=== PATIENT | female | born 1990 | race Caucasian/White ===

== ENCOUNTER 2018-03-24 14:50 | Emergency (ER) | payer OTHER ==
--- NOTE | 2018-03-24 15:00 | EDM.PDOC ---
ED HPI GENERAL MEDICAL PROBLEM - General Chief Complaint: Abdominal Pain Stated Complaint: PAIN IN STOMACH Time Seen by Provider: 03/24/18 14:51 Source of Information: Reports: Patient History Limitations: Reports: No Limitations - History of Present Illness INITIAL COMMENTS - FREE TEXT/NARRATIVE: History of present illness: []Patient was diagnosed with cholelithiasis on February 17 referred to general surgery. Patient was scheduled for surgery but was awaiting insurance approval and had to cancel. 4 days ago patient was started taking her left over tramadol for increasing pain in her upper abdomen. Patient been having sweats worsening pain and cannot tolerate it any longer. She has not been able to have a bowel movement, denies any urinary symptoms. Review of systems: As per history of present illness and below otherwise all systems reviewed and negative. Past medical history: As per history of present illness and as reviewed below otherwise noncontributory. Surgical history: As per history of present illness and as reviewed below otherwise noncontributory. Social history: No reported history of drug or alcohol abuse. Family history: As per history of present illness and as reviewed below otherwise noncontributory. Physical exam: General: Well developed, well nourished in NAD HEENT: Atraumatic, normocephalic, pupils reactive, negative for conjunctival pallor or scleral icterus, mucous membranes moist, throat clear, neck supple, nontender, trachea midline. Lungs: Clear to auscultation, breath sounds equal bilaterally, chest nontender. Heart: S1S2, regular, negative for clicks, rubs, or JVD. Abdomen: NABS, Soft, nondistended, tender right upper quadrant with no guarding positive rebound. Negative for masses or hepatosplenomegaly. Negative for costovertebral tenderness. Pelvis: Stable nontender. Genitourinary: Deferred. Rectal: Deferred. Extremities: Atraumatic, negative for cords or calf pain. Neurovascular unremarkable. Neuro: Awake, alert, oriented. Cranial nerves II through XII unremarkable. Cerebellum unremarkable. Motor and sensory unremarkable throughout. Exam nonfocal. Skin:warm and dry Diagnostics: CBC, chemistry-elevation in alkaline phosphatase AST and ALT with a normal bilirubin, lipase, UA, test, ultrasound of the gallbladder: Gallbladder wall ranges from upper limits normal to mildly thickened. Moderate size stone in the gallbladder with moderate amount of sludge and debris in the gallbladder. No pericholecystic fluid. Sonographic Renner`s sign was noted. Given these changes, early acute cholecystitis cannot be excluded. Consider HIDA scan to further evaluate. 2. Common bile duct normal in diameter but has increased echogenicity within its lumen which could be artifactual or related to sludge. 3. Cannot exclude mild intrahepatic biliary dilatation on 1 of the images. Therapeutics: Normal saline, Dilaudid, Zofran ED Course: Improved. Dr. Espino was consulted and he evaluated her in the emergency room cleared for discharge. given WBC was normal he recommend DC her on a meds with follow-up Impression: Early acute cholecystitis Prescriptions: Tramadol, Zofran and Levsin Plan: Follow-up with Dr. Vera next week. AMBER if symptoms worsen or change Definitive disposition and diagnosis as appropriate pending reevaluation and review of above. abdomen Pain Score (Numeric/FACES): 7 - Related Data Allergies Allergy/AdvReac Type Severity Reaction Status Date / Time latex Allergy Swelling Verified 03/21/18 03:28 sardines Allergy Hives Uncoded 03/21/18 03:28 wasp stings Allergy Swelling Uncoded 03/21/18 03:28 Home Meds: Home Meds traMADol HCl [Tramadol HCl] 1 tab PO ASDIRECTED PRN 03/07/18 [History] Hyoscyamine Sulfate [Levsin] 0.125 mg PO TID PRN #20 tablet 03/24/18 [Rx] Ondansetron HCl [Zofran] 4 mg PO Q4HR #12 tablet 03/24/18 [Rx] traMADol HCl [Tramadol HCl] 50 mg PO Q6H PRN #16 tablet 03/24/18 [Rx] Past Medical History [facility] History: Reports: Polycystic Ovaries, Spontaneous - Past Surgical History Female Surgical History: Reports: Breast Implant, Oophorectomy, Tubal Ligation Neurological Surgical History: Reports: Discectomy Other Neurological Surgeries/Procedures: L5 on R side ED ROS GENERAL - Review of Systems Review Of Systems: ROS reveals no pertinent complaints other than HPI. ED EXAM, GI/ABD - Physical Exam Exam: See Below (See history of present illness) Course - Vital Signs Last Recorded V/S: Last Vital Signs Temp 97.3 F 03/24/18 14:56 Pulse 104 H 03/24/18 14:56 Resp 20 03/24/18 14:56 BP 148/83 H 03/24/18 14:56 Pulse Ox 100 03/24/18 14:56 - Orders/Labs/Meds Orders: Active Orders 24 hr Category Date Time Status Abdomen Ltd [US] Stat Exams 03/24/18 15:12 Taken Sodium Chloride 0.9% [Saline Flush] Med 03/24/18 15:08 Active 10 ml FLUSH ASDIRECTED PRN Sodium Chloride 0.9% [Saline Flush] Med 03/24/18 15:08 Active 2.5 ml FLUSH ASDIRECTED PRN Saline Lock Insert [OM.PC] Stat Oth 03/24/18 15:07 Ordered Medication Orders Sodium Chloride (Saline Flush) 10 ml FLUSH ASDIRECTED PRN PRN Reason: Keep Vein Open Last Admin: 03/24/18 15:16 Dose: 10 ml Sodium Chloride (Saline Flush) 2.5 ml FLUSH ASDIRECTED PRN PRN Reason: Keep Vein Open Last Admin: 03/24/18 15:16 Dose: 2.5 ml Labs: Laboratory Tests 03/24/18 03/24/18 03/24/18 Range/Units 15:10 15:10 15:19 WBC 8.68 (4.0-11.0) K/uL RBC 4.54 (4.30-5.90) M/uL Hgb 13.7 (12.0-16.0) g/dL Hct 40.1 (36.0-46.0) % MCV 88.3 (80.0-98.0) fL MCH 30.2 (27.0-32.0) pg MCHC 34.2 (31.0-37.0) g/dL RDW Std Deviation 38.9 (28.0-62.0) fl RDW Coeff of Angel 12 (11.0-15.0) % Plt Count 258 (150-400) K/uL MPV 8.70 (7.40-12.00) fL Neut % (Auto) 61.0 (48.0-80.0) % Lymph % (Auto) 27.9 (16.0-40.0) % [place] % (Auto) 9.7 (0.0-15.0) % Eos % (Auto) 1.2 (0.0-7.0) % Baso % (Auto) 0.2 (0.0-1.5) % Neut # (Auto) 5.3 (1.4-5.7) K/uL Lymph # (Auto) 2.4 (0.6-2.4) K/uL [place] # (Auto) 0.8 (0.0-0.8) K/uL Eos # (Auto) 0.1 (0.0-0.7) K/uL Baso # (Auto) 0.0 (0.0-0.1) K/uL Nucleated RBC % 0.0 /100WBC Nucleated RBCs # 0 K/uL Sodium (136-145) mmol/L Potassium (3.5-5.1) mmol/L Chloride (98-107) mmol/L Carbon Dioxide (21.0-32.0) mmol/L BUN (7.0-18.0) mg/dL Creatinine (0.6-1.0) mg/dL Est Cr Clr Drug Dosing mL/min Estimated GFR (MDRD) ml/min Glucose (74-106) mg/dL Calcium (8.5-10.1) mg/dL Total Bilirubin (0.2-1.0) mg/dL AST (15-37) IU/L ALT (14-63) IU/L Alkaline Phosphatase (46-116) U/L Total Protein (6.4-8.2) g/dL Albumin (3.4-5.0) g/dL Globulin (2.6-4.0) g/dL Albumin/Globulin Ratio (0.9-1.6) Lipase (73-393) U/L Urine Color YELLOW Urine Appearance CLEAR Urine pH 7.0 (5.0-8.0) Ur Specific [place] 1.025 (1.001-1.035) Urine Protein TRACE H (NEGATIVE) mg/dL Urine Glucose (UA) NEGATIVE (NEGATIVE) mg/dL Urine Ketones TRACE H (NEGATIVE) mg/dL Urine Occult Blood MODERATE H (NEGATIVE) Urine Nitrite NEGATIVE (NEGATIVE) Urine Bilirubin NEGATIVE (NEGATIVE) Urine Urobilinogen 1.0 (<2.0) EU/dL Ur Leukocyte Esterase NEGATIVE (NEGATIVE) Urine RBC 4-6 (0-2/HPF) Urine WBC 0-1 (0-5/HPF) Ur Epithelial Cells MODERATE (NONE-FEW) Urine Bacteria FEW (NEGATIVE) Urine HCG, Qual NEGATIVE (NEGATIVE) 01/13/19 Range/Units 15:19 WBC (4.0-11.0) K/uL RBC (4.30-5.90) M/uL Hgb (12.0-16.0) g/dL Hct (36.0-46.0) % MCV (80.0-98.0) fL MCH (27.0-32.0) pg MCHC (31.0-37.0) g/dL RDW Std Deviation (28.0-62.0) fl RDW Coeff of Angel (11.0-15.0) % Plt Count (150-400) K/uL MPV (7.40-12.00) fL Neut % (Auto) (48.0-80.0) % Lymph % (Auto) (16.0-40.0) % [place] % (Auto) (0.0-15.0) % Eos % (Auto) (0.0-7.0) % Baso % (Auto) (0.0-1.5) % Neut # (Auto) (1.4-5.7) K/uL Lymph # (Auto) (0.6-2.4) K/uL [place] # (Auto) (0.0-0.8) K/uL Eos # (Auto) (0.0-0.7) K/uL Baso # (Auto) (0.0-0.1) K/uL Nucleated RBC % /100WBC Nucleated RBCs # K/uL Sodium 139 (136-145) mmol/L Potassium 3.9 (3.5-5.1) mmol/L Chloride 104 (98-107) mmol/L Carbon Dioxide 26.0 (21.0-32.0) mmol/L BUN 12 (7.0-18.0) mg/dL Creatinine 0.9 (0.6-1.0) mg/dL Est Cr Clr Drug Dosing 82.99 mL/min Estimated GFR (MDRD) > 60.0 ml/min Glucose 99 (74-106) mg/dL Calcium 9.3 (8.5-10.1) mg/dL Total Bilirubin 0.4 (0.2-1.0) mg/dL AST 175 H (15-37) IU/L ALT 251 H (14-63) IU/L Alkaline Phosphatase 132 H (46-116) U/L Total Protein 8.0 (6.4-8.2) g/dL Albumin 3.5 (3.4-5.0) g/dL Globulin 4.5 H (2.6-4.0) g/dL Albumin/Globulin Ratio 0.8 L (0.9-1.6) Lipase 132 (73-393) U/L Urine Color Urine Appearance Urine pH (5.0-8.0) Ur Specific [place] (1.001-1.035) Urine Protein (NEGATIVE) mg/dL Urine Glucose (UA) (NEGATIVE) mg/dL Urine Ketones (NEGATIVE) mg/dL Urine Occult Blood (NEGATIVE) Urine Nitrite (NEGATIVE) Urine Bilirubin (NEGATIVE) Urine Urobilinogen (<2.0) EU/dL Ur Leukocyte Esterase (NEGATIVE) Urine RBC (0-2/HPF) Urine WBC (0-5/HPF) Ur Epithelial Cells (NONE-FEW) Urine Bacteria (NEGATIVE) Urine HCG, Qual (NEGATIVE) Meds: Medications Generic Name Dose Route Start Last Admin Trade Name Fredana PRN Reason Stop Dose Admin Sodium Chloride 10 ml 03/24/18 15:08 03/24/18 15:16 Saline Flush FLUSH 10 ml ASDIRECTED PRN Administration Keep Vein Open Sodium Chloride 2.5 ml 03/24/18 15:08 03/24/18 15:16 Saline Flush FLUSH 2.5 ml ASDIRECTED PRN Administration Keep Vein Open Discontinued Medications Generic Name Dose Route Start Last Admin Trade Name Freq PRN Reason Stop Dose Admin Hydromorphone HCl 0.5 mg 03/24/18 15:08 03/24/18 15:16 Dilaudid IVPUSH 03/24/18 15:09 0.5 mg ONETIME ONE Administration Sodium Chloride 1,000 mls @ 999 mls/hr 03/24/18 15:08 03/24/18 15:15 Normal Saline IV 03/24/18 16:08 999 mls/hr .Bolus ONE Administration Ondansetron HCl 4 mg 03/24/18 15:08 03/24/18 15:15 Zofran IVPUSH 03/24/18 15:09 4 mg ONETIME ONE Administration Departure - Departure Time of Disposition: 16:24 Disposition: Home, Self-Care 01 Condition: Good Clinical Impression: Cholelithiasis Qualifiers: Cholelithiasis location: gallbladder Cholecystitis presence: without cholecystitis Biliary obstruction: without biliary obstruction Qualified Code(s) : K80.20 - Calculus of gallbladder without cholecystitis without obstruction - Discharge Information *PRESCRIPTION DRUG MONITORING PROGRAM REVIEWED*: No *COPY OF PRESCRIPTION DRUG MONITORING REPORT IN PATIENT TACOS: No Prescriptions: Ondansetron HCl [Zofran] 4 mg PO Q4HR #12 tablet Hyoscyamine Sulfate [Levsin] 0.125 mg PO TID PRN #20 tablet PRN Reason: Pain traMADol HCl [Tramadol HCl] 50 mg PO Q6H PRN #16 tablet PRN Reason: Pain Instructions: Cholelithiasis, [id number] Referrals: Radha Vera MD [Primary Care Provider] - Forms: ED Department Discharge Additional Instructions: The following information is given to patients seen in the emergency department who are being discharged to home. This information is to outline your options for follow-up care. We provide all patients seen in our emergency department with a follow-up referral. The need for follow-up, as well as the timing and circumstances, are variable depending upon the specifics of your emergency department visit. If you don't have a primary care physician on staff, we will provide you with a referral. We always advise you to contact your personal physician following an emergency department visit to inform them of the circumstance of the visit and for follow-up with them and/or the need for any referrals to a consulting specialist. The emergency department will also refer you to a specialist when appropriate. This referral assures that you have the opportunity for follow-up care with a specialist. All of these measure are taken in an effort to provide you with optimal care, which includes your follow-up. Under all circumstances we always encourage you to contact your private physician who remains a resource for coordinating your care. When calling for follow-up care, please make the office aware that this follow-up is from your recent emergency room visit. If for any reason you are refused follow-up, please contact the [facility] Emergency Department at and asked to speak to the emergency department charge nurse. Take meds as directed, follow up with Dr. Vera return if symptoms worsen or change. [facility] [address] [place] [id number] - My Orders Last 24 Hours: My Active Orders 03/24/18 15:07 Saline Lock Insert [OM.PC] Stat 03/24/18 15:08 Sodium Chloride 0.9% [Saline Flush] 10 ml FLUSH ASDIRECTED PRN Sodium Chloride 0.9% [Saline Flush] 2.5 ml FLUSH ASDIRECTED PRN 03/24/18 15:12 Abdomen Ltd [US] Stat - Assessment/Plan Last 24 Hours: My Active Orders 03/24/18 15:07 Saline Lock Insert [OM.PC] Stat 03/24/18 15:08 Sodium Chloride 0.9% [Saline Flush] 10 ml FLUSH ASDIRECTED PRN Sodium Chloride 0.9% [Saline Flush] 2.5 ml FLUSH ASDIRECTED PRN 03/24/18 15:12 Abdomen Ltd [US] Stat
[2018-03-24] MEDS ORDERED: Sodium Chloride 0.9% 1,000 ML IV ONE (15:08)
[2018-03-24] MEDS ORDERED: Ondansetron 4 MG/2 ML SDV IVPUSH ONE (15:08)
[2018-03-24] MEDS ORDERED: HYDROmorphone 1 MG/ML Syringe IVPUSH ONE (15:08)
[2018-03-24] MEDS ORDERED: Sodium Chloride 0.9% 2.5 ML Syringe FLUSH PRN (15:08)
[2018-03-24] MEDS ORDERED: Sodium Chloride 0.9% 10 ML Syringe FLUSH PRN (15:08)
[2018-03-24 15:53] LABS: CHLORIDE,CL 104 mmol/L (98-107); SODIUM,NA 139 mmol/L (136-145)
--- NOTE | 2018-03-24 16:44 | PCM.CONS ---
H&P History of Present Illness - General Date of Service: 03/24/18 Admit Problem/Dx: Patient is a 27-year-old female with a documented history of cholelithiasis. She has seen Dr. Vera in the past. She began experiencing right upper quadrant abdominal pain this past Sunday. Symptoms have progressed to the point that she is not getting any pain relief. She denies any nausea or vomiting. She has been hungry and trying to eat but everything she eats causes discomfort. She has not noticed any change in the color of her urine. No unexplained weight loss. Source of Information: Patient History Limitations: Reports: No Limitations - History of Present Illness Symptom Onset Date: 03/20/18 Duration of Symptoms: Reports: Day(s): Location: Reports: Abdomen Quality: Reports: Pressure, Throbbing Severity: Moderate Improves with: Reports: None Worsens with: Reports: None Associated Symptoms: Reports: No Other Symptoms abdomen Pain Score (Numeric/FACES): 7 - Related Data Allergies/Adverse Reactions: Allergies Allergy/AdvReac Type Severity Reaction Status Date / Time latex Allergy Swelling Verified 03/21/18 03:28 sardines Allergy Hives Uncoded 03/21/18 03:28 wasp stings Allergy Swelling Uncoded 03/21/18 03:28 Home Medications: Home Meds traMADol HCl [Tramadol HCl] 1 tab PO ASDIRECTED PRN 03/07/18 [History] Hyoscyamine Sulfate [Levsin] 0.125 mg PO TID PRN #20 tablet 03/24/18 [Rx] Ondansetron HCl [Zofran] 4 mg PO Q4HR #12 tablet 03/24/18 [Rx] traMADol HCl [Tramadol HCl] 50 mg PO Q6H PRN #16 tablet 03/24/18 [Rx] Past Medical History Gastrointestinal History: Reports: Other (See Below) Other Gastrointestinal History: gall bladder issues [facility] History: Reports: Polycystic Ovaries, Spontaneous - Past Surgical History Female Surgical History: Reports: Breast Implant, Oophorectomy, Tubal Ligation Neurological Surgical History: Reports: Discectomy Other Neurological Surgeries/Procedures: L5 on R side Social & Family History - Family History Family Medical History: Noncontributory - Tobacco Use Smoking Status *Q: Light Tobacco Smoker Years of Tobacco use: 5 Packs/Tins Daily: 0.2 - Caffeine Use Caffeine Use: Reports: Coffee - Recreational Drug Use Recreational Drug Use: No H&P Review of Systems - Review of Systems: Review Of Systems: See Below General: Denies: Fever, Chills, Malaise, Weakness, Night Sweats, Diaphoresis HEENT: Reports: No Symptoms Pulmonary: Denies: Shortness of Breath, Wheezing Cardiovascular: Denies: Chest Pain, Palpitations Gastrointestinal: Reports: Abdominal Pain, Constipation, Decreased Appetite. Denies: Nausea, Vomiting Genitourinary: Denies: Dysuria, Frequency, Burning, Pain, Urgency Musculoskeletal: Reports: Shoulder Pain (right) Skin: Denies: Cyanosis, Jaundice Psychiatric: Denies: Confusion, Depression, Mood Lability, Anxiety Neurological: Reports: No Symptoms Hematologic/Lymphatic: Reports: No Symptoms Immunologic: Reports: No Symptoms Exam - Exam Exam: See Below - Vital Signs Vital Signs: Last Vital Signs Temp 97.3 F 03/24/18 14:56 Pulse 104 H 03/24/18 14:56 Resp 20 03/24/18 14:56 BP 148/83 H 03/24/18 14:56 Pulse Ox 100 03/24/18 14:56 Weight: 170 lb - Exam General: Alert, Oriented, Cooperative, Mild Distress HEENT: Conjunctiva Clear, EACs Clear, Pupils Equal, Pupils Reactive. No: Scleral Icterus Neck: Supple, Trachea Midline Lungs: Clear to Auscultation, Normal Respiratory Effort Cardiovascular: Regular Rate, Regular Rhythm. No: Tachycardia GI/Abdominal Exam: Normal Bowel Sounds, Soft, No Mass. No: Guarding, Rigid, Rebound, Tender (ruq) (Female) Exam: Deferred Rectal (Female) Exam: Deferred Back Exam: Normal Inspection Extremities: Normal Inspection Peripheral Pulses: 4+: Posterior Tibial (L), Posterior Tibial (R), Dorsalis Pedis (L), Dorsalis Pedis (R) Skin: Warm, Dry, Intact Neurological: Cranial Nerves Intact Psychiatric: Alert, Normal Affect, Normal Mood - Patient Data Lab Results Last 24 hrs: Laboratory Results - last 24 hr 03/24/18 03/24/18 03/24/18 Range/Units 15:10 15:10 15:19 WBC 8.68 (4.0-11.0) K/uL RBC 4.54 (4.30-5.90) M/uL Hgb 13.7 (12.0-16.0) g/dL Hct 40.1 (36.0-46.0) % MCV 88.3 (80.0-98.0) fL MCH 30.2 (27.0-32.0) pg MCHC 34.2 (31.0-37.0) g/dL RDW Std Deviation 38.9 (28.0-62.0) fl RDW Coeff of Angel 12 (11.0-15.0) % Plt Count 258 (150-400) K/uL MPV 8.70 (7.40-12.00) fL Neut % (Auto) 61.0 (48.0-80.0) % Lymph % (Auto) 27.9 (16.0-40.0) % [place] % (Auto) 9.7 (0.0-15.0) % Eos % (Auto) 1.2 (0.0-7.0) % Baso % (Auto) 0.2 (0.0-1.5) % Neut # (Auto) 5.3 (1.4-5.7) K/uL Lymph # (Auto) 2.4 (0.6-2.4) K/uL [place] # (Auto) 0.8 (0.0-0.8) K/uL Eos # (Auto) 0.1 (0.0-0.7) K/uL Baso # (Auto) 0.0 (0.0-0.1) K/uL Nucleated RBC % 0.0 /100WBC Nucleated RBCs # 0 K/uL Sodium (136-145) mmol/L Potassium (3.5-5.1) mmol/L Chloride (98-107) mmol/L Carbon Dioxide (21.0-32.0) mmol/L BUN (7.0-18.0) mg/dL Creatinine (0.6-1.0) mg/dL Est Cr Clr Drug Dosing mL/min Estimated GFR (MDRD) ml/min Glucose (74-106) mg/dL Calcium (8.5-10.1) mg/dL Total Bilirubin (0.2-1.0) mg/dL AST (15-37) IU/L ALT (14-63) IU/L Alkaline Phosphatase (46-116) U/L Total Protein (6.4-8.2) g/dL Albumin (3.4-5.0) g/dL Globulin (2.6-4.0) g/dL Albumin/Globulin Ratio (0.9-1.6) Lipase (73-393) U/L Urine Color YELLOW Urine Appearance CLEAR Urine pH 7.0 (5.0-8.0) Ur Specific [place] 1.025 (1.001-1.035) Urine Protein TRACE H (NEGATIVE) mg/dL Urine Glucose (UA) NEGATIVE (NEGATIVE) mg/dL Urine Ketones TRACE H (NEGATIVE) mg/dL Urine Occult Blood MODERATE H (NEGATIVE) Urine Nitrite NEGATIVE (NEGATIVE) Urine Bilirubin NEGATIVE (NEGATIVE) Urine Urobilinogen 1.0 (<2.0) EU/dL Ur Leukocyte Esterase NEGATIVE (NEGATIVE) Urine RBC 4-6 (0-2/HPF) Urine WBC 0-1 (0-5/HPF) Ur Epithelial Cells MODERATE (NONE-FEW) Urine Bacteria FEW (NEGATIVE) Urine HCG, Qual NEGATIVE (NEGATIVE) 03/24/18 Range/Units 15:19 WBC (4.0-11.0) K/uL RBC (4.30-5.90) M/uL Hgb (12.0-16.0) g/dL Hct (36.0-46.0) % MCV (80.0-98.0) fL MCH (27.0-32.0) pg MCHC (31.0-37.0) g/dL RDW Std Deviation (28.0-62.0) fl RDW Coeff of [place] (11.0-15.0) % Plt Count (150-400) K/uL MPV (7.40-12.00) fL Neut % (Auto) (48.0-80.0) % Lymph % (Auto) (16.0-40.0) % [place] % (Auto) (0.0-15.0) % Eos % (Auto) (0.0-7.0) % Baso % (Auto) (0.0-1.5) % Neut # (Auto) (1.4-5.7) K/uL Lymph # (Auto) (0.6-2.4) K/uL [place] # (Auto) (0.0-0.8) K/uL Eos # (Auto) (0.0-0.7) K/uL Baso # (Auto) (0.0-0.1) K/uL Nucleated RBC % /100WBC Nucleated RBCs # K/uL Sodium 139 (136-145) mmol/L Potassium 3.9 (3.5-5.1) mmol/L Chloride 104 (98-107) mmol/L Carbon Dioxide 26.0 (21.0-32.0) mmol/L BUN 12 (7.0-18.0) mg/dL Creatinine 0.9 (0.6-1.0) mg/dL Est Cr Clr Drug Dosing 82.99 mL/min Estimated GFR (MDRD) > 60.0 ml/min Glucose 99 (74-106) mg/dL Calcium 9.3 (8.5-10.1) mg/dL Total Bilirubin 0.4 (0.2-1.0) mg/dL AST 175 H (15-37) IU/L ALT 251 H (14-63) IU/L Alkaline Phosphatase 132 H (46-116) U/L Total Protein 8.0 (6.4-8.2) g/dL Albumin 3.5 (3.4-5.0) g/dL Globulin 4.5 H (2.6-4.0) g/dL Albumin/Globulin Ratio 0.8 L (0.9-1.6) Lipase 132 (73-393) U/L Urine Color Urine Appearance Urine pH (5.0-8.0) Ur Specific [place] (1.001-1.035) Urine Protein (NEGATIVE) mg/dL Urine Glucose (UA) (NEGATIVE) mg/dL Urine Ketones (NEGATIVE) mg/dL Urine Occult Blood (NEGATIVE) Urine Nitrite (NEGATIVE) Urine Bilirubin (NEGATIVE) Urine Urobilinogen (<2.0) EU/dL Ur Leukocyte Esterase (NEGATIVE) Urine RBC (0-2/HPF) Urine WBC (0-5/HPF) Ur Epithelial Cells (NONE-FEW) Urine Bacteria (NEGATIVE) Urine HCG, Qual (NEGATIVE) Result Diagrams: 03/24/18 15:19 03/24/18 15:19 Imaging Impressions Last 24 hrs: Ultrasound has been personally reviewed. She does have put appears to be a solitary gallstone in the mid body. Her common bile duct measures 5 mm in the gallbladder wall is 2.6 mm in thickness. I did not see any intrahepatic bile duct dilatation. Consult PN Assessment/Plan Procedures: Procedures ASSAY OF AMYLASE (03/21/18) ASSAY OF LIPASE (03/21/18) COMPLETE CBC W/AUTO DIFF WBC (03/21/18) COMPREHEN METABOLIC PANEL (03/21/18) CT ABD & PELV W/CONTRAST (02/13/18) ECHO EXAM OF ABDOMEN (02/20/18) EMERGENCY DEPT VISIT (03/21/18) HELICOBACTER PYLORI ANTIBODY (02/13/18) HYDRATE IV INFUSION ADD-ON (03/21/18) ROUTINE VENIPUNCTURE (03/21/18) THER/PROPH/DIAG INJ IV PUSH (03/21/18) TX/PRO/DX INJ NEW DRUG ADDON (02/13/18) URINALYSIS AUTO W/SCOPE (03/21/18) URINE CULTURE/COLONY COUNT (03/21/18) (1) Biliary colic SNOMED Code(s): 90133672 Code(s): K80.50 - CALCULUS OF BILE DUCT W/O CHOLANGITIS OR CHOLECYST W/O OBST Priority: Medium Current Visit: No Problem List Initiated/Reviewed/Updated: Yes Plan: I did suggest the patient contacted Dr. Vera's office tomorrow and be seen and be scheduled for her cholecystectomy. She should be given a prescription for pain control. Given the lack of leukocytosis and the fact that she is afebrile, I do not think she needs to be on antibiotics related to her biliary tract. She did tell me she is on antibiotics currently for a urinary tract infection.
--- NOTE | 2018-03-25 20:22 | US ---
EXAM DATE: 03/24/18 PATIENT'S AGE: 27 Patient: BILLY ALARCON Facility: [place], [place] Site . Site : 1990 Study: US Abdomen [id number] 4:27:05 PM Ordering Physician: Conrad Dwyer Final Report: INDICATION: History of gallstones. Worsening pain. Question cholecystitis. TECHNIQUE: Abdominal limited ultrasound. FINDINGS: Right kidney measures 11.1 cm and is negative for hydronephrosis. Pancreas not well visualized but where seen grossly normal. Gallbladder wall is upper limits of normal to mildly thickened. Qualitatively the gallbladder wall appears mildly thickened. Moderate size stone in the gallbladder. Moderate amount of sludge and debris in the gallbladder. A positive sonographic Renner`s sign was noted. Given these changes, early cholecystitis cannot be excluded. Laboratory correlation recommended. If clinically desired HIDA scan could be performed to further evaluate for cholecystitis. The common bile duct measures 5 mm and has increased echogenicity associated within it in the gera hepatis region which is nonspecific and could be artifactual although sludge within the common bile duct can cause this. Cannot exclude a mild amount of intrahepatic biliary dilatation on image 31. Liver otherwise unremarkable. Remainder negative. IMPRESSION: 1. Gallbladder wall ranges from upper limits normal to mildly thickened. Moderate size stone in the gallbladder with moderate amount of sludge and debris in the gallbladder. No pericholecystic fluid. Sonographic Renner`s sign was noted. Given these changes, early acute cholecystitis cannot be excluded. Consider HIDA scan to further evaluate. 2. Common bile duct normal in diameter but has increased echogenicity within its lumen which could be artifactual or related to sludge. 3. Cannot exclude mild intrahepatic biliary dilatation on 1 of the images. Dictated by Vel Edwards MD @ Mar 24 2018 4:37PM (Electronic Signature) Report Signed by Proxy. JONATHON
== END 2018-03-24 16:46 | disposition home or self-care (01) ==
LOC: MW.ED 14:50 → MERGE 14:50 → MW.ED 16:46
DX: K80.20 Calculus of gallbladder without cholecystitis without obstruction (principal); Z79.899 Other long term (current) drug therapy; Z91.040 Latex allergy status; Z88.8 Allergy status to other drugs, medicaments and biological substances; Z91.030 Bee allergy status
CPT/HCPCS: 36415; 76705; 80053; 81001; 81025; 83690; 85025; 96361; 96374; 96375; 99284; J1170; J2405; J7040

== ENCOUNTER 2018-03-25 15:08 | Inpatient (IN) | payer OTHER ==
[2018-03-25] MEDS ORDERED: Sodium Chloride 0.9% 2.5 ML Syringe FLUSH PRN (16:49)
[2018-03-25] MEDS ORDERED: diphenhydrAMINE 50 MG/ML SDV IVPUSH PRN (16:49)
[2018-03-25] MEDS ORDERED: Promethazine 25 MG/ML SDV IM PRN (16:49)
[2018-03-25] MEDS ORDERED: HYDROmorphone 1 MG/ML Syringe IVPUSH PRN (16:49)
[2018-03-25] MEDS ORDERED: Sodium Chloride 0.9% 10 ML Syringe FLUSH PRN (16:49)
--- NOTE | 2018-03-25 17:07 | PCM.HP ---
H&P History of Present Illness - General Date of Service: 03/25/18 Admit Problem/Dx: Admission Diagnosis/Problem Admission Diagnosis/Problem Cholecystitis Source of Information: Patient History Limitations: Reports: No Limitations - History of Present Illness Initial Comments - Free Text/Narative: The patient is a 27-year-old female who presents with acute right upper quadrant pain since Sunday. She was previously scheduled to have an elective laparoscopic cholecystectomy for symptomatic cholelithiasis earlier this month however canceled at the last minute. Last week she then developed sharp right upper quadrant pain associated with meals. She presented to the emergency room on March 21. Her labs in right upper quadrant ultrasound were normal. The pain started to become worse and was associated with nausea and vomiting. It became more severe and she presented to the emergency room yesterday. Her vital signs were stable. Physical exam showed a positive Renner sign. Her labs in the ER showed a normal CBC. She had mildly elevated alkaline phosphatase, AST and ALT. Her bilirubin was normal as well as her lipase. Her UA showed moderate occult blood with a few bacteria and she was treated for UTI. Her ultrasound showed questionable gallbladder wall thickening with cholelithiasis. It showed a normal size common bile duct but questionable mild intrahepatic biliary dilatation. She was discharged home after given tramadol however the pain came back and she was up all evening because of unrelenting right upper quadrant pain. She states it is a 10 out of 10 in radiates to the epigastric area. - Related Data Allergies/Adverse Reactions: Allergies Allergy/AdvReac Type Severity Reaction Status Date / Time latex Allergy Swelling Verified 03/21/18 03:28 sardines Allergy Hives Uncoded 03/21/18 03:28 wasp stings Allergy Swelling Uncoded 03/21/18 03:28 Home Medications: Home Meds traMADol HCl [Tramadol HCl] 1 tab PO ASDIRECTED PRN 03/07/18 [History] Hyoscyamine Sulfate [Levsin] 0.125 mg PO TID PRN #20 tablet 03/24/18 [Rx] Ondansetron HCl [Zofran] 4 mg PO Q4HR #12 tablet 03/24/18 [Rx] traMADol HCl [Tramadol HCl] 50 mg PO Q6H PRN #16 tablet 03/24/18 [Rx] Past Medical History Gastrointestinal History: Reports: Other (See Below) Other Gastrointestinal History: gall bladder issues [employer] History: Reports: Polycystic Ovaries, Spontaneous - Past Surgical History Female Surgical History: Reports: Breast Implant, Oophorectomy, Tubal Ligation Neurological Surgical History: Reports: Discectomy Other Neurological Surgeries/Procedures: L5 on R side Social & Family History - Family History Family Medical History: Noncontributory - Caffeine Use Caffeine Use: Reports: Coffee H&P Review of Systems - Review of Systems: Review Of Systems: ROS reveals no pertinent complaints other than HPI. Exam - Exam Exam: See Below - Exam General: Alert, Oriented, Moderate Distress HEENT: Conjunctiva Clear, Mucosa Moist & [place], Posterior Pharynx Clear Neck: Supple Lungs: Clear to Auscultation, Normal Respiratory Effort Cardiovascular: Regular Rate, Regular Rhythm GI/Abdominal Exam: Soft, No Distention, No Mass, Tender (RUQ with positive murphys sign ) - Problem List (1) Biliary colic SNOMED Code(s): 34486373 ICD Code: K80.50 - CALCULUS OF BILE DUCT W/O CHOLANGITIS OR CHOLECYST W/O OBST Status: Acute Priority: Medium Current Visit: No (2) Cholelithiasis SNOMED Code(s): 164727974 ICD Code: K80.20 - CALCULUS OF GALLBLADDER W/O CHOLECYSTITIS W/O OBSTRUCTION Status: Acute Current Visit: No Problem List Initiated/Reviewed/Updated: Yes Orders Last 24hrs: Active Orders 24 hr Category Date Time Status Patient Status [ADT] Routine ADT 03/25/18 16:49 Ordered Notify Provider Vital Signs [RC] PRN Care 03/25/18 16:51 Ordered Oxygen Therapy [RC] PRN Care 03/25/18 16:49 Ordered RT Incentive Spirometry [RC] Q1HWA Care 03/25/18 16:49 Ordered Up ad Loren [RC] ASDIRECTED Care 03/25/18 16:49 Ordered Vital Signs [RC] PER UNIT ROUTINE Care 03/25/18 16:49 Ordered Nothing Per Oral Diet [DIET] Diet 03/25/18 Dinner Ordered Abdomen Pelvis w Cont [CT] Stat Exams 03/25/18 16:55 Ordered CBC WITH AUTO DIFF [HEME] Stat Lab 03/25/18 16:49 Ordered COMPREHENSIVE METABOLIC PN,CMP [CHEM] Stat Lab 03/25/18 16:49 Ordered Acetaminophen/oxyCODONE [Percocet 325-5 MG] Med 03/25/18 16:49 Ordered 2 tab PO Q4H PRN HYDROmorphone [Dilaudid] Med 03/25/18 16:49 Ordered 0.5 mg IVPUSH Q1H PRN Ondansetron [Zofran] Med 03/25/18 16:49 Ordered 4 mg IVPUSH Q6H PRN Pantoprazole [ProTONIX] Med 03/25/18 17:00 Ordered 40 mg PO DAILY Piperacillin/Tazobactam [Piperacil-Tazobact] 3.375 gm Med 03/25/18 17:00 Ordered Sodium Chloride 0.9% [Normal Saline] 50 ml IV Q8H Promethazine [Phenergan] Med 03/25/18 16:49 Ordered 25 mg IM Q6H PRN Scopolamine [Transderm-Scop] Med 03/25/18 17:00 Ordered 1.5 mg TRDERM Q72H Sodium Chloride 0.9% @ 125 MLS/HR (1000ml) Med 03/25/18 17:00 Ordered Sodium Chloride 0.9% [Normal Saline] 1,000 ml IV ASDIRECTED Sodium Chloride 0.9% [Saline Flush] Med 03/25/18 16:49 Ordered 10 ml FLUSH ASDIRECTED PRN Sodium Chloride 0.9% [Saline Flush] Med 03/25/18 16:49 Ordered 2.5 ml FLUSH ASDIRECTED PRN diphenhydrAMINE [Benadryl] Med 03/25/18 16:49 Ordered 25 mg IVPUSH Q4H PRN Peripheral IV Insertion Adult [OM.PC] Urgent Oth 03/25/18 16:49 Ordered Resuscitation Status Routine Resus Stat 03/25/18 16:49 Ordered Medication Orders Diphenhydramine HCl (Benadryl) 25 mg IVPUSH Q4H PRN PRN Reason: Itching Hydromorphone HCl (Dilaudid) 0.5 mg IVPUSH Q1H PRN PRN Reason: Pain (severe 7-10) Piperacillin Sod/Tazobactam (Sod 3.375 gm/ Sodium Chloride) 50 mls @ 100 mls/ hr IV Q8H NITHIN Sodium Chloride (Normal Saline) 1,000 mls @ 125 mls/hr IV ASDIRECTED NITHIN Ondansetron HCl (Zofran) 4 mg IVPUSH Q6H PRN PRN Reason: Nausea/Vomiting Oxycodone/Acetaminophen (Percocet 325-5 Mg) 2 tab PO Q4H PRN PRN Reason: Pain (moderate 4-6) Pantoprazole Sodium (Protonix) 40 mg PO DAILY NITHIN Promethazine HCl (Phenergan) 25 mg IM Q6H PRN PRN Reason: Nausea Scopolamine (Transderm-Scop) 1.5 mg TRDERM Q72H NITHIN Sodium Chloride (Saline Flush) 10 ml FLUSH ASDIRECTED PRN PRN Reason: Keep Vein Open Sodium Chloride (Saline Flush) 2.5 ml FLUSH ASDIRECTED PRN PRN Reason: Keep Vein Open Assessment/Plan Comment:: Given the severity of the patient's symptoms, she was admitted directly from clinic. I'll begin workup for acute cholecystitis versus choledocholithiasis by obtaining repeat CBC, CMP and lipase. She'll get a stat CT the abdomen/pelvis with IV contrast. Based on these findings I'll make further treatment decisions. In the meantime I will give her IV fluids, IV and oral pain medications and keep her NPO. Pain: IV dilaudid 0.5mg q 1hr prn, Percocet Cardiac/Pulm: Monitor vitals per unit routine GI: NPO, LR @ 125ml/hr. Will check electrolytes including phos and mag. Renal: UOP monitoring per shift. ID: Zosyn since she may have a UTI and in case she has acute cholecystitis. Px: SCDs, Incentive spirometry use
[2018-03-25] MEDS ORDERED: Iopamidol 755 MG/ML 500 ML Multipack Bottle IVPUSH STA (17:30)
[2018-03-25 17:44] LABS: CHLORIDE,CL 101 mmol/L (98-107); SODIUM,NA 136 mmol/L (136-145)
[2018-03-25] MEDS: Sodium Chloride 0.9% 1,000 ML IV SCH (17:46)
[2018-03-25] MEDS: Piperacillin/Tazobactam 3.375 GM in Sodium Chloride 0.9% 50 ML IV SCH (17:47)
[2018-03-25] MEDS: Pantoprazole 40 MG Tab.CR PO SCH (17:47)
[2018-03-25] MEDS: Acetaminophen/oxyCODONE 325-5 MG Tab PO PRN (18:18)
[2018-03-25] MEDS: Scopolamine 1.5 MG Transdermal Patch TRDERM SCH (18:21)
[2018-03-26] MEDS: Acetaminophen/oxyCODONE 325-5 MG Tab PO PRN ×3 (00:15→12:35)
[2018-03-26] MEDS: Piperacillin/Tazobactam 3.375 GM in Sodium Chloride 0.9% 50 ML IV SCH ×3 (00:16→18:47)
[2018-03-26] MEDS: Sodium Chloride 0.9% 1,000 ML IV SCH ×3 (00:20→23:54)
[2018-03-26] MEDS: Ondansetron 4 MG/2 ML SDV IVPUSH PRN ×2 (06:06→20:17)
[2018-03-26 06:29] LABS: CHLORIDE,CL 104 mmol/L (98-107); SODIUM,NA 139 mmol/L (136-145)
[2018-03-26] MEDS: Pantoprazole 40 MG Tab.CR PO SCH (08:35)
--- NOTE | 2018-03-26 10:47 | CT ---
EXAM DATE: 03/25/18 PATIENT'S AGE: 27 Patient: BILLY ALARCON Facility: [place], [place] Site . Site : 1990 Study: CT Abdomen/Pelvis W CONT [id number]/2019 5:34:56 PM Ordering Physician: Jody Garcia Final Report: INDICATION: Pain TECHNIQUE: CT abdomen and pelvis acquired with IV contrast. 90 cc Isovue 370 COMPARISON: None FINDINGS: Lower chest: Small right pleural effusion versus pleural thickening. Liver: Unremarkable. Spleen: Unremarkable. Pancreas: Unremarkable. Gallbladder and bile ducts: Distended gallbladder with significant gallbladder wall thickening and a solitary 2.0 centimeter gallstone. Pericholecystic inflammatory stranding and small amount of fluid noted. The common bile duct measures up to 7 millimeters. Kidneys: Unremarkable. Adrenal glands: Unremarkable. GI tract: Unremarkable. Appendix is normal. Vascular structures: Unremarkable. Lymph nodes: Unremarkable. Miscellaneous: Unremarkable. No free air or significant free fluid. Pelvic Organs: Unremarkable. Bones: Unremarkable for age. IMPRESSION: Distended gallbladder with gallbladder wall thickening and solitary 2.0 centimeter gallstone, pericholecystic fluid and fat stranding. Findings consistent with cholecystitis. The common bile duct measures up to 7 millimeters. Dictated by Luiz Napoles MD @ 03/25/2018 6:33:32 PM Please note that all CT scans at this facility use dose modulation, iterative reconstruction, and/or weight-based dosing when appropriate to reduce radiation dose to as low as reasonably achievable. Dictated by: Luiz Napoles MD @ 03/25/2018 18:33:44 (Electronic Signature) Report Signed by Proxy. [facility]
[2018-03-26] MEDS ORDERED: Propofol 200 MG/20 ML SDV ONE (12:54)
[2018-03-26] MEDS ORDERED: fentaNYL 250 MCG/5 ML SDV ONE (12:54)
[2018-03-26] MEDS ORDERED: Midazolam 1 MG/ML 2 ML SDV ONE (12:54)
[2018-03-26] MEDS ORDERED: Rocuronium 10 MG/ML 10 ML Syringe ONE (12:59)
[2018-03-26] MEDS ORDERED: Ondansetron 4 MG/2 ML SDV ONE (12:59)
[2018-03-26] MEDS ORDERED: Neostigmine Methylsulfate 1 MG/ML 5 ML Syringe ONE (12:59)
[2018-03-26] MEDS ORDERED: Dexamethasone 4 MG/ML 5 ML MDV ONE (12:59)
[2018-03-26] MEDS ORDERED: Succinylcholine 200 MG/10 ML MDV ONE (12:59)
[2018-03-26] MEDS ORDERED: Glycopyrrolate 0.2 MG/ML SDV ONE (12:59)
[2018-03-26] MEDS ORDERED: Bupivacaine 0.5% 30 ML SDV ONE ×3 (13:48→16:55)
[2018-03-26] MEDS ORDERED: Sodium Chloride 0.9% 20 ML ONE (14:22)
[2018-03-26] MEDS ORDERED: Phenylephrine/Normal Saline 100 MCG/ML 10 ML Syringe ONE (14:48)
[2018-03-26] MEDS ORDERED: HYDROmorphone 2 MG/ML Syringe ONE ×2 (15:27→17:28)
[2018-03-26] MEDS ORDERED: Bupivacaine 0.5% 10 ML SDV ONE (16:00)
[2018-03-26] MEDS ORDERED: Bupivacaine 25%/EPINEPHrine/PF 30 ML ONE ×2 (16:02→16:05)
[2018-03-26] MEDS ORDERED: Ropivacaine 0.2% 2 MG/ML 20 ML SDV ONE (16:07)
--- NOTE | 2018-03-26 16:23 | PCM.PREANE ---
Preanesthetic Assessment - Anesthesia/Transfusion/Family Hx Family History of Anesthesia Reaction: No - Review of Systems General: No Symptoms Pulmonary: No Symptoms Cardiovascular: No Symptoms Gastrointestinal: Abdominal Pain Neurological: No Symptoms Other: Reports: None - Physical Assessment NPO Status Date: 03/25/18 O2 Sat by Pulse Oximetry: 98 Respiratory Rate: 16 Vital Signs: Last Vital Signs Temp 36.8 C 03/26/18 12:00 Pulse 72 03/26/18 12:00 Resp 16 03/26/18 12:00 BP 110/58 L 03/26/18 12:00 Pulse Ox 98 03/26/18 12:00 Height: 1.65 m Weight: 76.827 kg ASA Class: 2E Mental Status: Alert & Oriented x3 Airway Class: Mallampati = 2 Dentition: Reports: Normal Dentition ROM/Head Extension: Full Lungs: Clear to Auscultation, Normal Respiratory Effort Cardiovascular: Regular Rate, Regular Rhythm - Lab Values: Laboratory Last Values WBC 9.93 K/uL (4.0-11.0) 03/26/18 05:55 RBC 4.11 M/uL (4.30-5.90) L 03/26/18 05:55 Hgb 12.5 g/dL (12.0-16.0) 03/26/18 05:55 Hct 36.6 % (36.0-46.0) 03/26/18 05:55 MCV 89.1 fL (80.0-98.0) 03/26/18 05:55 MCH 30.4 pg (27.0-32.0) 03/26/18 05:55 MCHC 34.2 g/dL (31.0-37.0) 03/26/18 05:55 RDW Std Deviation 39.2 fl (28.0-62.0) 03/26/18 05:55 RDW Coeff of Angel 12 % (11.0-15.0) 03/26/18 05:55 Plt Count 232 K/uL (150-400) 03/26/18 05:55 MPV 8.50 fL (7.40-12.00) 03/26/18 05:55 Neut % (Auto) 64.3 % (48.0-80.0) 03/26/18 05:55 Lymph % (Auto) 20.7 % (16.0-40.0) 03/26/18 05:55 Ralls % (Auto) 12.5 % (0.0-15.0) 03/26/18 05:55 Eos % (Auto) 2.2 % (0.0-7.0) 03/26/18 05:55 Baso % (Auto) 0.3 % (0.0-1.5) 03/26/18 05:55 Neut # (Auto) 6.4 K/uL (1.4-5.7) H 03/26/18 05:55 Lymph # (Auto) 2.1 K/uL (0.6-2.4) 03/26/18 05:55 Ralls # (Auto) 1.2 K/uL (0.0-0.8) H 03/26/18 05:55 Eos # (Auto) 0.2 K/uL (0.0-0.7) 03/26/18 05:55 Baso # (Auto) 0.0 K/uL (0.0-0.1) 03/26/18 05:55 Nucleated RBC % 0.0 /100WBC 03/26/18 05:55 Nucleated RBCs # 0 K/uL 03/26/18 05:55 Sodium 139 mmol/L (136-145) 03/26/18 05:55 Potassium 3.7 mmol/L (3.5-5.1) 03/26/18 05:55 Chloride 104 mmol/L (98-107) 03/26/18 05:55 Carbon Dioxide 25.5 mmol/L (21.0-32.0) 03/26/18 05:55 BUN 7 mg/dL (7.0-18.0) 03/26/18 05:55 Creatinine 0.8 mg/dL (0.6-1.0) 03/26/18 05:55 Est Cr Clr Drug Dosing 93.37 mL/min 03/26/18 05:55 Estimated GFR (MDRD) > 60.0 ml/min 03/26/18 05:55 Glucose 95 mg/dL (74-106) 03/26/18 05:55 Calcium 8.6 mg/dL (8.5-10.1) 03/26/18 05:55 Phosphorus 3.4 mg/dL (2.6-4.7) 03/25/18 17:12 Magnesium 1.8 mg/dL (1.8-2.4) 03/25/18 17:12 Total Bilirubin 0.7 mg/dL (0.2-1.0) 03/26/18 05:55 AST 50 IU/L (15-37) H 03/26/18 05:55 ALT 125 IU/L (14-63) H 03/26/18 05:55 Alkaline Phosphatase 159 U/L (46-116) H 03/26/18 05:55 Total Protein 6.9 g/dL (6.4-8.2) 03/26/18 05:55 Albumin 2.8 g/dL (3.4-5.0) L 03/26/18 05:55 Globulin 4.1 g/dL (2.6-4.0) H 03/26/18 05:55 Albumin/Globulin Ratio 0.7 (0.9-1.6) L 03/26/18 05:55 Lipase 89 U/L (73-393) 03/25/18 17:12 - Allergies Allergies/Adverse Reactions: Allergies Allergy/AdvReac Type Severity Reaction Status Date / Time latex Allergy Swelling Verified 03/21/18 03:28 sardines Allergy Hives Uncoded 03/21/18 03:28 wasp stings Allergy Swelling Uncoded 03/21/18 03:28 - Blood Blood Available: No - Anesthesia Plan Pre-Op Medication Ordered: None - Acknowledgements Anesthesia Type Planned: General Anesthesia Pt an Appropriate Candidate for the Planned Anesthesia: Yes Alternatives and Risks of Anesthesia Discussed w Pt/Guardian: Yes Pt/Guardian Understands and Agrees with Anesthesia Plan: Yes Additional Comments: Pt seen, examined and chart reviewed by Dr Menjivar at 1130 am today PreAnesthesia Questionnaire Gastrointestinal History: Reports: Other (See Below) Other Gastrointestinal History: gall bladder issues [employer] History: Reports: Polycystic Ovaries, Spontaneous Hematologic History: Reports: Other (See Below) Other Hematologic History: States when she was little they thought she had a low blood count, bruised easily, went away on its own. - Past Surgical History Female Surgical History: Reports: Breast Implant, Oophorectomy, Tubal Ligation Neurological Surgical History: Reports: Discectomy Other Neurological Surgeries/Procedures: L5 on R side - SUBSTANCE USE Smoking Status *Q: Light Tobacco Smoker Tobacco Use Within Last Twelve Months: Cigarettes Second Hand Smoke Exposure: No Days Per Week of Alcohol Use: 0 Recreational Drug Use History: No - HOME MEDS Home Medications: Home Meds traMADol HCl [Tramadol HCl] 1 tab PO ASDIRECTED PRN 03/07/18 [History] Hyoscyamine Sulfate [Levsin] 0.125 mg PO TID PRN #20 tablet 03/24/18 [Rx] Ondansetron HCl [Zofran] 4 mg PO Q4HR #12 tablet 03/24/18 [Rx] traMADol HCl [Tramadol HCl] 50 mg PO Q6H PRN #16 tablet 03/24/18 [Rx] - CURRENT (IN HOUSE) MEDS Current Meds: Current Medications Diphenhydramine HCl (Benadryl) 25 mg IVPUSH Q4H PRN PRN Reason: Itching Hydromorphone HCl (Dilaudid) 0.5 mg IVPUSH Q1H PRN PRN Reason: Pain (severe 7-10) Piperacillin Sod/Tazobactam (Sod 3.375 gm/ Sodium Chloride) 50 mls @ 100 mls/ hr IV Q8H [facility] Last Admin: 03/26/18 08:28 Dose: 100 mls/hr Sodium Chloride (Normal Saline) 1,000 mls @ 125 mls/hr IV ASDIRECTED [facility] Last Admin: 03/26/18 11:30 Dose: 125 mls/hr Ondansetron HCl (Zofran) 4 mg IVPUSH Q6H PRN PRN Reason: Nausea/Vomiting Last Admin: 03/26/18 06:06 Dose: 4 mg Oxycodone/Acetaminophen (Percocet 325-5 Mg) 2 tab PO Q4H PRN PRN Reason: Pain (moderate 4-6) Last Admin: 03/26/18 12:35 Dose: 1 tab Pantoprazole Sodium (Protonix) 40 mg PO DAILY [facility] Last Admin: 03/26/18 08:35 Dose: 40 mg Promethazine HCl (Phenergan) 25 mg IM Q6H PRN PRN Reason: Nausea Scopolamine (Transderm-Scop) 1.5 mg TRDERM Q72H [facility] Last Admin: 03/25/18 18:21 Dose: 1.5 mg Sodium Chloride (Saline Flush) 10 ml FLUSH ASDIRECTED PRN PRN Reason: Keep Vein Open Sodium Chloride (Saline Flush) 2.5 ml FLUSH ASDIRECTED PRN PRN Reason: Keep Vein Open Discontinued Medications Bupivacaine HCl (Marcaine 0.5%) Confirm Administered Dose 30 ml .ROUTE .[facility] ONE Stop: 03/26/18 13:49 Bupivacaine HCl (Sensorcaine-Mpf 0.5%) Confirm Administered Dose 40 ml .ROUTE .[facility] ONE Stop: 03/26/18 16:01 Bupivacaine HCl (Marcaine 0.5%) Confirm Administered Dose 120 ml .ROUTE .ST- MED ONE Stop: 03/26/18 16:04 Dexamethasone (Dexamethasone) Confirm Administered Dose 20 mg .ROUTE .[facility] ONE Stop: 03/26/18 13:00 Fentanyl (Sublimaze) Confirm Administered Dose 250 mcg .ROUTE .ST-MED ONE Stop: 03/26/18 12:55 Glycopyrrolate (Robinul) Confirm Administered Dose 0.4 mg .ROUTE .[facility] ONE Stop: 03/26/18 13:00 Hydromorphone HCl (Dilaudid) Confirm Administered Dose 2 mg .ROUTE .ST-MED ONE Stop: 03/26/18 15:28 Lidocaine HCl (Xylocaine-Mpf 1%) Confirm Administered Dose 5 mls @ as directed .ROUTE .[facility] ONE Stop: 03/26/18 12:57 Sodium Chloride (Normal Saline) Confirm Administered Dose 20 mls @ as directed .ROUTE .[facility]-MED ONE Stop: 03/26/18 14:23 Bupivacaine HCl/Epinephrine Bitart (Sensorc Mpf 0.25%-Epi 1:[id number]) Confirm Administered Dose 30 mls @ as directed .ROUTE .[facility]-MED ONE Stop: 03/26/18 16:03 Bupivacaine HCl/Epinephrine Bitart (Sensorc Mpf 0.25%-Epi 1:[id number]) Confirm Administered Dose 30 mls @ as directed .ROUTE .[facility] ONE Stop: 03/26/18 16:06 Iopamidol (Isovue Multipack-370 (76%)) 90 ml IVPUSH ONETIME STA Stop: 03/25/18 17:31 Last Admin: 03/25/18 17:30 Dose: 90 ml Midazolam HCl (Versed 1 Mg/Ml) Confirm Administered Dose 2 mg .ROUTE .ST-MED ONE Stop: 03/26/18 12:55 Neostigmine Methylsulfate (Neostigmine) Confirm Administered Dose 5 mg .ROUTE .[facility] ONE Stop: 03/26/18 13:00 Ondansetron HCl (Zofran) Confirm Administered [facility] Stop: 03/26/18 13:00 Phenylephrine HCl (Phenylephrine In Ns 100 Mcg/Ml) Confirm Administered Dose 1 mg .ROUTE .[facility] ONE Stop: 03/26/18 14:49 Propofol (Diprivan 20 Ml) Confirm Administered Dose 200 mg .ROUTE .[facility] ONE Stop: 03/26/18 12:55 Rocuronium [place] (Zemuron) Confirm Administered Dose 100 mg .ROUTE .[facility] ONE Stop: 03/26/18 13:00 Ropivacaine (Naropin 0.2%) Confirm Administered Dose 20 ml [facility] Stop: 03/26/18 16:08 Succinylcholine Chloride (Quelicin) Confirm Administered [facility] Stop: 03/26/18 13:00
[2018-03-26] MEDS ORDERED: ceFAZolin 1 GM Vial ONE (16:31)
[2018-03-26] MEDS ORDERED: fentaNYL 100 MCG/2 ML SDV IVPUSH PRN (16:34)
--- NOTE | 2018-03-26 17:25 | PCM.OPNOTE ---
- General Post-Op/Procedure Note Date of Surgery/Procedure: 03/26/18 Operative Procedure(s): Laparoscopic converted to open cholecystectomy Findings: Severely distended and inflamed gallbladder containing a 2-3 cm stone impacted proximally. Pre Op Diagnosis: Acute cholecystitis Post-Op Diagnosis: Acute cholecystitis secondary to cholelithiasis Anesthesia Technique: General ET Tube Primary Surgeon: Radha Vera Pathology: gallbladder Fluid Replacement, Intraop: 1,500 Output, Urine Amount: 150 EBL in mLs: 300 Surgical Drain/Tube Type: Deandre Drain Condition: Good Free Text/Narrative:: Intake & Output 03/26/18 03/26/18 03/26/18 06:59 14:59 22:59 Intake Total 1471 50 1255 Output Total 650 250 Balance 351 81 0053
[2018-03-26] MEDS ORDERED: HYDROmorphone 2 MG/ML Syringe IVPUSH ONE (17:27)
[2018-03-26] MEDS ORDERED: Acetaminophen 1,000 MG in Premix Bag 1 BAG IV ONE (17:28)
[2018-03-26] MEDS ORDERED: Morphine PF 30 MG/30 ML PCA Vial ONE (17:41)
[2018-03-26] MEDS: Morphine PF 30 MG/30 ML PCA Vial IV SCH (17:42)
--- NOTE | 2018-03-26 18:07 | PCM.POSTAN ---
POST ANESTHESIA ASSESSMENT - MENTAL STATUS Mental Status: Alert, Oriented - RESPIRATORY Respiratory Status: Respiratory Rate WNL, Airway Patent, O2 Saturation Stable - CARDIOVASCULAR CV Status: Pulse Rate WNL, Blood Pressure Stable - GASTROINTESTINAL GI Status: No Symptoms - PAIN Pain Score: 6 - POST OP HYDRATION Hydration Status: Adequate & Stable
--- NOTE | 2018-03-26 18:41 | OR ---
SURGEON: JOSE ALFREDO CORDOVA MD DATE OF PROCEDURE: 03/26/2018 PREOPERATIVE DIAGNOSIS: Acute cholecystitis. POSTOPERATIVE DIAGNOSIS: Severe acute cholecystitis secondary to cholelithiasis. PROCEDURE PERFORMED: Laparoscopic, converted to open cholecystectomy SECOND SURGEON: Sushil Espino M.D. FLUIDS: 1500 mL of crystalloid. ESTIMATED BLOOD LOSS: 300 mL. URINE OUTPUT: 150 mL. FINDINGS: Severely inflamed, thickened and distended gallbladder containing a 2 to 3 cm stone impacted proximally within the gallbladder. COMPLICATIONS: None. INDICATIONS: The patient is a 27-year-old female who was scheduled earlier this month to undergo a laparoscopic cholecystectomy due to symptomatic cholelithiasis. She cancelled the procedure, but then presented to the emergency room with severe right upper quadrant pain last week. Her work up revealed no evidence of acute cholecystitis. She followed up with me in clinic this Sunday and the pain had become constant and severe. I admitted her to the hospital. Her white blood cell count was elevated and a CT of the abdomen and pelvis showed a grossly distended and inflamed gallbladder consistent with acute cholecystitis. I explained the need for a cholecystectomy. I described both the laparoscopic and open procedures. Given the degree of inflammation I saw on the CT scan, I told the patient that there was a good chance that we may need to convert to open. The patient and I discussed the procedure, expected perioperative course, and risks including bleeding, infection, or damage to surrounding structures. The patient verbalized understanding and wishes to proceed. PROCEDURE IN DETAIL: The patient was brought to the operating room, placed on the OR table in supine position. A time-out was completed verifying the patient's name, age, date of , allergies, and procedure to be performed. General endotracheal anesthesia was induced. After the patient was intubated and sedated, I palpated her abdomen. I could feel a firm mass consistent with her gallbladder externally. Given my suspicion that I would have to convert to open, both arms were tucked to the patient's side and a Renner catheter placed. The abdomen was prepped and draped in usual standard fashion. I anesthetized the infraumbilical fold with 0.5% Marcaine plain. An 11 blade was used to make an incision along the infraumbilical fold. I used cautery to dissect down to the level of subcutaneous fat. I bluntly dissected down to the level of the fascia. The fascia was elevated with Carole's and incised sharply with the Abraham scissors. I identified the peritoneum and elevated this with hemostats and incised this sharply. Entry into the abdomen was palpated. When I palpated in the abdomen, I could feel the gallbladder abutting my finger. A 12-mm Ken trocar was gently placed into the abdomen to avoid puncturing the gallbladder. The abdomen was insufflated and I inserted a 5-mm 30-degree scope into the abdomen. No damage to surrounding structures from my initial trocar placement was noted. My attention was turned to the right upper quadrant. I immediately encountered an enlarged, distended, and severely inflamed gallbladder. It was encased in omentum that appeared inflamed with areas of infarction. I placed a 5-mm trocar in the right upper quadrant, 2 fingerbreadths below the right subcostal margin along the midclavicular line. Through this port, I was able to then sweep down the omental attachments of the gallbladder enough that I could then safely place my other 5-mm trocars. One was placed in the epigastric area and the other along the right flank. Given how distended the gallbladder was, I first decompressed it with a laparoscopic aspirating needle. 150 mL of green-appearing bile was aspirated. After doing this, I was then able to grab the thickened and inflamed gallbladder wall and elevate it cranially. I was able to take down the rest of the omental attachments with gentle dissection down to the level of the infundibulum. It and the cystic duct and artery were encased in a thickened. I attempted to bluntly dissect and suction away any of these attachments, but they were too adhered for me to proceed safely. The decision was then made to convert to open. My partner, Dr. Sushil Espino was called in to assist me. The infraumbilical port site fascia was closed with interrupted 0 Vicryl sutures. I then removed my 5-mm trocars. I made a right subcostal incision 2 fingerbreadths below the costal margin using a 10 blade. Cautery was used to then dissect down through the layers of the abdominal wall until I identified the peritoneum. The peritoneum was elevated and sharply incised. I immediately encountered the thickened and inflamed top of the gallbladder. A sharp metal trocar was inserted through the top of the gallbladder. I attempted to suction any more bile out of the gallbladder itself, but was unable to do so. There was a 2 to 3 cm large stone impacted proximally. I was able to mobilize this, however, the gallbladder wall was severely thickened and there was no further bile within the gallbladder itself. I approached the gallbladder in a dome down fashion. Using cautery and sharp dissection, I created a plane between the gallbladder and the liver bed. This was carried down proximally. Dr. Sushil Espino then began dissection along the proximal structures. Using a right angle, a Kittner, and Metzenbaum scissors, we carefully dissected through the thickened and inflamed rind of tissue. Several small arterial branches were clipped and thickened edematous tissue was tied off. We identified what we believed was our cystic artery and doubly clipped and ligated this. We were then able to clear away the cystic duct, which was grossly thickened and inflamed. Once we had completely cleared away the inflamed tissue around it, we placed a 2-0 Vicryl suture on the cystic duct, both proximally and distally. A staple was placed between these. We then used a Metzenbaum scissors to remove the gallbladder from the cystic duct. The gallbladder was passed off the field and sent to pathology. The cut end of the cystic duct was thickened and inflamed, but there was no bile leakage. We irrigated the abdomen with 2 L of Ancef normal saline solution. The gallbladder fossa was oozy with no nano hemorrhage. Endo Avitene and Surgicel were placed in the gallbladder fossa. A 19-Upper Sorbian round Deandre drain was placed within the gallbladder fossa and carried out through the right lateral flank incision where her 5-mm trocar used to be. This was sutured in place using a 2-0 silk suture. We reinspected our field, which appeared to be hemostatic with no bile leakage. The peritoneum was closed with running 0 Vicryl suture. The anterior abdominal fascia was then closed with interrupted 0 Ethibond suture. An On-Q pump was then placed above the fascia and the subcutaneous fat was closed with a running 3-0 Vicryl stitch. The skin was closed with teresa, both along the subcostal incision as well as at the infraumbilical fold. Sterile dressings were applied. All counts were complete and correct at the end of the case. The patient tolerated the procedure well and was taken to PACU in stable condition. LEMEASH / HERNÁN /[id number] MTDMatthew
[2018-03-26] MEDS: Cyclobenzaprine 5 MG Tab PO SCH (20:20)
[2018-03-27] MEDS: Piperacillin/Tazobactam 3.375 GM in Sodium Chloride 0.9% 50 ML IV SCH ×3 (01:18→16:36)
[2018-03-27] MEDS ORDERED: Ketorolac 30 MG/ML SDV IVPUSH ONE (02:36)
[2018-03-27 06:14] LABS: CHLORIDE,CL 108 mmol/L (98-107); SODIUM,NA 141 mmol/L (136-145)
[2018-03-27] MEDS: Morphine PF 30 MG/30 ML PCA Vial IV SCH ×2 (07:02→20:02)
[2018-03-27] MEDS: Sodium Chloride 0.9% 1,000 ML IV SCH (08:30)
[2018-03-27] MEDS: Ketorolac 10 MG Tab PO SCH ×3 (08:50→19:45)
[2018-03-27] MEDS: Pantoprazole 40 MG Tab.CR PO SCH (08:50)
[2018-03-27] MEDS: Cyclobenzaprine 5 MG Tab PO SCH ×2 (08:52→20:39)
--- NOTE | 2018-03-27 10:51 | PCM.SURGPN ---
- General Info Date of Service: 03/27/18 Date of Surgery/Procedure: 03/26/18 POD#: 1 Functional Status: Reports: Pain Controlled, Tolerating Diet, Ambulating, Urinating - Review of Systems General: Reports: No Symptoms Pulmonary: Reports: No Symptoms Cardiovascular: Reports: No Symptoms Gastrointestinal: Reports: No Symptoms Musculoskeletal: Reports: No Symptoms - Patient Data Vitals - Most Recent: Last Vital Signs Temp 36.8 C 03/27/18 08:00 Pulse 64 03/27/18 08:00 Resp 18 03/27/18 08:00 BP 100/56 L 03/27/18 08:00 Pulse Ox 96 03/27/18 08:00 Weight - Most Recent: 76.827 kg I&O - Last 24 Hours: Intake & Output 03/26/18 03/27/18 03/27/18 22:59 06:59 14:59 Intake Total 5255 1975 Output Total 400 1810 Balance 4855 165 Lab Results Last 24 Hrs: Laboratory Results - last 24 hr 03/27/18 03/27/18 Range/Units 05:30 05:30 WBC 12.12 H (4.0-11.0) K/uL RBC 3.71 L (4.30-5.90) M/uL Hgb 11.1 L (12.0-16.0) g/dL Hct 32.8 L (36.0-46.0) % MCV 88.4 (80.0-98.0) fL MCH 29.9 (27.0-32.0) pg MCHC 33.8 (31.0-37.0) g/dL RDW Std Deviation 38.2 (28.0-62.0) fl RDW Coeff of Angel 12 (11.0-15.0) % Plt Count 265 (150-400) K/uL MPV 8.50 (7.40-12.00) fL Nucleated RBC % 0.0 /100WBC Nucleated RBCs # 0 K/uL Sodium 141 (136-145) mmol/L Potassium 4.4 (3.5-5.1) mmol/L Chloride 108 H (98-107) mmol/L Carbon Dioxide 27.3 (21.0-32.0) mmol/L BUN 4 L (7.0-18.0) mg/dL Creatinine 0.8 (0.6-1.0) mg/dL Est Cr Clr Drug Dosing 93.37 mL/min Estimated GFR (MDRD) > 60.0 ml/min Glucose 130 H (74-106) mg/dL Calcium 8.2 L (8.5-10.1) mg/dL Total Bilirubin 0.3 (0.2-1.0) mg/dL AST 59 H (15-37) IU/L ALT 113 H (14-63) IU/L Alkaline Phosphatase 134 H (46-116) U/L Total Protein 6.0 L (6.4-8.2) g/dL Albumin 2.3 L (3.4-5.0) g/dL Globulin 3.7 (2.6-4.0) g/dL Albumin/Globulin Ratio 0.6 L (0.9-1.6) Med Orders - Current: Current Medications Cyclobenzaprine HCl (Flexeril) 5 mg PO BID [facility] Last Admin: 03/27/18 08:52 Dose: 5 mg Diphenhydramine HCl (Benadryl) 25 mg IVPUSH Q4H PRN PRN Reason: Itching Piperacillin Sod/Tazobactam (Sod 3.375 gm/ Sodium Chloride) 50 mls @ 100 mls/ hr IV Q8H [facility] Last Admin: 03/27/18 09:19 Dose: 100 mls/hr Sodium Chloride (Normal Saline) 1,000 mls @ 125 mls/hr IV ASDIRECTED [facility] Last Admin: 03/27/18 08:30 Dose: 125 mls/hr Ketorolac Tromethamine (Toradol) 10 mg PO Q6H [facility] Stop: 04/01/18 08:01 Last Admin: 03/27/18 08:50 Dose: 10 mg Morphine Sulfate (Morphine Secondary Social Studies Teacher 30 Mg In 30 Ml) 30 mg IV CONTINUOUS [facility]; Protocol Last Admin: 03/27/18 07:02 Dose: 30 mg Ondansetron HCl (Zofran) 4 mg IVPUSH Q6H PRN PRN Reason: Nausea/Vomiting Last Admin: 03/26/18 20:17 Dose: 4 mg Pantoprazole Sodium (Protonix) 40 mg PO DAILY [facility] Last Admin: 03/27/18 08:50 Dose: 40 mg Promethazine HCl (Phenergan) 25 mg IM Q6H PRN PRN Reason: Nausea Scopolamine (Transderm-Scop) 1.5 mg TRDERM Q72H [facility] Last Admin: 03/25/18 18:21 Dose: 1.5 mg Sodium Chloride (Saline Flush) 10 ml FLUSH ASDIRECTED PRN PRN Reason: Keep Vein Open Sodium Chloride (Saline Flush) 2.5 ml FLUSH ASDIRECTED PRN PRN Reason: Keep Vein Open Discontinued Medications Bupivacaine HCl (Marcaine 0.5%) Confirm Administered Dose 30 ml .ROUTE .STK-MED ONE Stop: 03/26/18 13:49 Bupivacaine HCl (Sensorcaine-Mpf 0.5%) Confirm Administered Dose 40 ml .ROUTE .STK-MED ONE Stop: 03/26/18 16:01 Bupivacaine HCl (Marcaine 0.5%) Confirm Administered Dose 120 ml .ROUTE .STK- MED ONE Stop: 03/26/18 16:04 Bupivacaine HCl (Marcaine 0.5%) Confirm Administered Dose 30 ml .ROUTE .STK-MED ONE Stop: 03/26/18 16:56 Cefazolin Sodium (Ancef) Confirm Administered Dose 1 gm .ROUTE .STK-MED ONE Stop: 03/26/18 16:32 Dexamethasone (Dexamethasone) Confirm Administered Dose 20 mg .ROUTE .STK-MED ONE Stop: 03/26/18 13:00 Fentanyl (Sublimaze) Confirm Administered Dose 250 mcg .ROUTE .STK-MED ONE Stop: 03/26/18 12:55 Fentanyl (Sublimaze) 50 mcg IVPUSH Q5M PRN PRN Reason: Pain (severe 7-10) Stop: 03/26/18 18:00 Glycopyrrolate (Robinul) Confirm Administered Dose 0.4 mg .ROUTE .STK-MED ONE Stop: 03/26/18 13:00 Hydromorphone HCl (Dilaudid) 0.5 mg IVPUSH Q1H PRN PRN Reason: Pain (severe 7-10) Hydromorphone HCl (Dilaudid) Confirm Administered Dose 2 mg .ROUTE .STK-MED ONE Stop: 03/26/18 15:28 Hydromorphone HCl (Dilaudid) 2 mg IVPUSH ONETIME ONE Stop: 03/26/18 17:28 Last Admin: 03/26/18 18:59 Dose: Not Given Hydromorphone HCl (Dilaudid) Confirm Administered Dose 2 mg .ROUTE .STK-MED ONE Stop: 03/26/18 17:29 Last Admin: 03/26/18 17:34 Dose: 2 mg Lidocaine HCl (Xylocaine-Mpf 1%) Confirm Administered Dose 5 mls @ as directed .ROUTE .STK-MED ONE Stop: 03/26/18 12:57 Sodium Chloride (Normal Saline) Confirm Administered Dose 20 mls @ as directed .ROUTE .STK-MED ONE Stop: 03/26/18 14:23 Bupivacaine HCl/Epinephrine Bitart (Sensorc Mpf 0.25%-Epi 1:[id number]) Confirm Administered Dose 30 mls @ as directed .ROUTE .STK-MED ONE Stop: 03/26/18 16:03 Bupivacaine HCl/Epinephrine Bitart (Sensorc Mpf 0.25%-Epi 1:300911) Confirm Administered Dose 30 mls @ as directed .ROUTE .ST-MED ONE Stop: 03/26/18 16:06 Acetaminophen 1,000 mg/ Premix 100 mls @ 400 mls/hr IV NOW ONE Stop: 03/26/18 17:42 Last Admin: 03/26/18 18:01 Dose: 400 mls/hr Acetaminophen (Ofirmev) Confirm Administered Dose 100 mls @ as directed IV .STK- MED ONE Stop: 03/26/18 17:40 Iopamidol (Isovue Multipack-370 (76%)) 90 ml IVPUSH ONETIME STA Stop: 03/25/18 17:31 Last Admin: 03/25/18 17:30 Dose: 90 ml Ketorolac Tromethamine (Toradol) 30 mg IVPUSH ONETIME ONE Stop: 03/27/18 02:37 Last Admin: 03/27/18 02:48 Dose: 30 mg Midazolam HCl (Versed 1 Mg/Ml) Confirm Administered Dose 2 mg .ROUTE .STK-MED ONE Stop: 03/26/18 12:55 Morphine Sulfate (Morphine Secondary Social Studies Teacher 30 Mg In 30 Ml) Confirm Administered Dose 30 mg .ROUTE .STK-MED ONE Stop: 03/26/18 17:42 Last Admin: 03/26/18 18:59 Dose: Not Given Neostigmine Methylsulfate (Neostigmine) Confirm Administered Dose 5 mg .ROUTE .STK-MED ONE Stop: 03/26/18 13:00 Ondansetron HCl (Zofran) Confirm Administered Dose 4 mg .ROUTE .STK-MED ONE Stop: 03/26/18 13:00 Oxycodone/Acetaminophen (Percocet 325-5 Mg) 2 tab PO Q4H PRN PRN Reason: Pain (moderate 4-6) Last Admin: 03/26/18 12:35 Dose: 1 tab Phenylephrine HCl (Phenylephrine In Ns 100 Mcg/Ml) Confirm Administered Dose 1 mg .ROUTE .STK-MED ONE Stop: 03/26/18 14:49 Propofol (Diprivan 20 Ml) Confirm Administered Dose 200 mg .ROUTE .STK-MED ONE Stop: 03/26/18 12:55 Rocuronium Balsam (Zemuron) Confirm Administered Dose 100 mg .ROUTE .STK-MED ONE Stop: 03/26/18 13:00 Ropivacaine (Naropin 0.2%) Confirm Administered Dose 20 ml .ROUTE .STK-MED ONE Stop: 03/26/18 16:08 Succinylcholine Chloride (Quelicin) Confirm Administered Dose 200 mg .ROUTE .STK -MED ONE Stop: 03/26/18 13:00 - Exam Wound/Incisions: Healing Well, Other (Drainage around drain sponge) General: Alert, Oriented Lungs: Normal Respiratory Effort Cardiovascular: Regular Rate GI/Abdominal Exam: Soft, Non-Tender, No Distention, No Mass Extremities: Normal Inspection Skin: Warm, Dry, Intact Neurological: No New Focal Deficit Psy/Mental Status: Alert, Labile Mood - Problem List & Annotations (1) Cholelithiasis SNOMED Code(s): 411148376 Code(s): K80.20 - CALCULUS OF GALLBLADDER W/O CHOLECYSTITIS W/O OBSTRUCTION Status: Acute Current Visit: No (2) Biliary colic SNOMED Code(s): 96018483 Code(s): K80.50 - CALCULUS OF BILE DUCT W/O CHOLANGITIS OR CHOLECYST W/O OBST Status: Acute Priority: Medium Current Visit: No - Problem List Review Problem List Initiated/Reviewed/Updated: Yes - My Orders Last 24 Hours: Active Orders 24 hr Category Date Time Status Admission Status [Patient Status] [ADT] Routine ADT 03/26/18 19:24 Active Remove Feliz Catheter [Urinary Catheter Removal] [RC] Care 03/27/18 07:51 Active Per Unit Routine Clear Liquid Diet [DIET] Diet 03/26/18 Dinner Active Regular Diet [DIET] Diet 03/27/18 Lunch Ordered CBC W/O DIFF,HEMOGRAM [HEME] AM Lab 03/28/18 05:11 Ordered CBC W/O DIFF,HEMOGRAM [HEME] AM Lab 03/29/18 05:11 Ordered CMP [COMPREHENSIVE METABOLIC PN,CMP] [CHEM] AM Lab 03/28/18 05:11 Ordered CMP [COMPREHENSIVE METABOLIC PN,CMP] [CHEM] AM Lab 03/29/18 05:11 Ordered Cyclobenzaprine [Flexeril] Med 03/26/18 21:00 Active 5 mg PO BID Ketorolac [Toradol] Med 03/27/18 08:00 Active 10 mg PO Q6H Morphine PF [Morphine BACK TENDER CYLINDER 30 MG in 30 ML] Med 03/26/18 17:30 Active 30 mg IV CONTINUOUS Medication Orders Cyclobenzaprine HCl (Flexeril) 5 mg PO BID [facility] Last Admin: 03/27/18 08:52 Dose: 5 mg Admin: 03/26/18 20:20 Dose: 5 mg Diphenhydramine HCl (Benadryl) 25 mg IVPUSH Q4H PRN PRN Reason: Itching Piperacillin Sod/Tazobactam (Sod 3.375 gm/ Sodium Chloride) 50 mls @ 100 mls/ hr IV Q8H [facility] Last Admin: 03/27/18 09:19 Dose: 100 mls/hr Infusion: 03/27/18 01:48 Dose: 100 mls/hr Admin: 03/27/18 01:18 Dose: 100 mls/hr Admin: 03/26/18 18:47 Dose: Infusion: 03/26/18 08:58 Dose: 100 mls/hr Admin: 03/26/18 08:28 Dose: 100 mls/hr Infusion: 03/26/18 00:46 Dose: 100 mls/hr Admin: 03/26/18 00:16 Dose: 100 mls/hr Infusion: 03/25/18 18:17 Dose: 100 mls/hr Admin: 03/25/18 17:47 Dose: 100 mls/hr Sodium Chloride (Normal Saline) 1,000 mls @ 125 mls/hr IV ASDIRECTED [facility] Last Admin: 03/27/18 08:30 Dose: 125 mls/hr Infusion: 03/27/18 07:54 Dose: 125 mls/hr Admin: 03/26/18 23:54 Dose: 125 mls/hr Infusion: 03/26/18 19:30 Dose: 125 mls/hr Admin: 03/26/18 11:30 Dose: 125 mls/hr Infusion: 03/26/18 08:20 Dose: 125 mls/hr Admin: 03/26/18 00:20 Dose: 125 mls/hr Infusion: 03/26/18 00:20 Dose: 125 mls/hr Admin: 03/25/18 17:46 Dose: 125 mls/hr Ketorolac Tromethamine (Toradol) 10 mg PO Q6H [facility] Stop: 04/01/18 08:01 Last Admin: 03/27/18 08:50 Dose: 10 mg Morphine Sulfate (Morphine Secondary Social Studies Teacher 30 Mg In 30 Ml) 30 mg IV CONTINUOUS [facility]; Protocol Last Admin: 03/27/18 07:02 Dose: 30 mg Admin: 03/26/18 17:42 Dose: 30 mg Ondansetron HCl (Zofran) 4 mg IVPUSH Q6H PRN PRN Reason: Nausea/Vomiting Last Admin: 03/26/18 20:17 Dose: 4 mg Admin: 03/26/18 06:06 Dose: 4 mg Pantoprazole Sodium (Protonix) 40 mg PO DAILY [facility] Last Admin: 03/27/18 08:50 Dose: 40 mg Admin: 03/26/18 08:35 Dose: 40 mg Admin: 03/25/18 17:47 Dose: 40 mg Promethazine HCl (Phenergan) 25 mg IM Q6H PRN PRN Reason: Nausea Scopolamine (Transderm-Scop) 1.5 mg TRDERM Q72H [facility] Last Admin: 03/25/18 18:21 Dose: 1.5 mg Sodium Chloride (Saline Flush) 10 ml FLUSH ASDIRECTED PRN PRN Reason: Keep Vein Open Sodium Chloride (Saline Flush) 2.5 ml FLUSH ASDIRECTED PRN PRN Reason: Keep Vein Open - Plan Plan (Free Text/Narrative):: Pain: Will transition off of BACK TENDER CYLINDER this evening if pain well controlled. Schedule toradol. CV/P: VSS. Encourage IS use. GI: Clear liquid diet tolerated. Advance diet to regular Renal: Remove feliz catheter. Ok to D/C IVF ID: Continue IV zosyn until WBC normal. Px: SCDs, will start lovenox
[2018-03-27] MEDS: Enoxaparin 40 MG/0.4 ML Syringe SUBCUT SCH (11:05)
--- NOTE | 2018-03-27 12:03 | PCM48HPAN ---
Post Anesthesia Note - EVALUATION WITHIN 48HRS OF ANESTHETIC Vital Signs in Normal Range: Yes Patient Participated in Evaluation: Yes Respiratory Function Stable: Yes Airway Patent: Yes Cardiovascular Function Stable: Yes Hydration Status Stable: Yes Pain Control Satisfactory: Yes Nausea and Vomiting Control Satisfactory: Yes Mental Status Recovered: Yes Resp Rate: 18
[2018-03-28] MEDS: Ketorolac 10 MG Tab PO SCH ×4 (01:00→20:44)
[2018-03-28] MEDS: Piperacillin/Tazobactam 3.375 GM in Sodium Chloride 0.9% 50 ML IV SCH (01:02)
[2018-03-28 06:28] LABS: CHLORIDE,CL 109 mmol/L (98-107); SODIUM,NA 144 mmol/L (136-145)
[2018-03-28] MEDS ORDERED: Acetaminophen/oxyCODONE 325-5 MG Tab PO PRN (07:39)
[2018-03-28] MEDS ORDERED: HYDROmorphone 1 MG/ML Syringe IVPUSH PRN (07:40)
[2018-03-28] MEDS: Cyclobenzaprine 5 MG Tab PO SCH ×2 (08:05→20:45)
[2018-03-28] MEDS: Pantoprazole 40 MG Tab.CR PO SCH (08:05)
[2018-03-28] MEDS: Enoxaparin 40 MG/0.4 ML Syringe SUBCUT SCH (11:14)
--- NOTE | 2018-03-28 15:18 | PCM.SURGPN ---
- General Info Date of Service: 03/28/18 Date of Surgery/Procedure: 03/26/18 POD#: 2 Functional Status: Reports: Pain Controlled, Tolerating Diet, Ambulating, Urinating - Review of Systems General: Reports: No Symptoms HEENT: Reports: No Symptoms Pulmonary: Reports: No Symptoms Cardiovascular: Reports: No Symptoms Gastrointestinal: Reports: No Symptoms - Patient Data Vitals - Most Recent: Last Vital Signs Temp 36.6 C 03/28/18 12:00 Pulse 68 03/28/18 12:00 Resp 22 H 03/28/18 12:00 BP 114/69 03/28/18 12:00 Pulse Ox 95 03/28/18 12:00 Weight - Most Recent: 76.827 kg I&O - Last 24 Hours: Intake & Output 03/28/18 03/28/18 03/28/18 06:59 14:59 22:59 Intake Total 500 Output Total 840 Balance -340 Lab Results Last 24 Hrs: Laboratory Results - last 24 hr 03/28/18 03/28/18 Range/Units 05:50 05:50 WBC 6.81 (4.0-11.0) K/uL RBC 3.36 L (4.30-5.90) M/uL Hgb 10.0 L (12.0-16.0) g/dL Hct 30.1 L (36.0-46.0) % MCV 89.6 (80.0-98.0) fL MCH 29.8 (27.0-32.0) pg MCHC 33.2 (31.0-37.0) g/dL RDW Std Deviation 39.7 (28.0-62.0) fl RDW Coeff of Angel 12 (11.0-15.0) % Plt Count 261 (150-400) K/uL MPV 8.30 (7.40-12.00) fL Nucleated RBC % 0.0 /100WBC Nucleated RBCs # 0 K/uL Sodium 144 (136-145) mmol/L Potassium 3.9 (3.5-5.1) mmol/L Chloride 109 H (98-107) mmol/L Carbon Dioxide 30.7 (21.0-32.0) mmol/L BUN 6 L (7.0-18.0) mg/dL Creatinine 0.7 (0.6-1.0) mg/dL Est Cr Clr Drug Dosing 106.70 mL/min Estimated GFR (MDRD) > 60.0 ml/min Glucose 99 (74-106) mg/dL Calcium 8.1 L (8.5-10.1) mg/dL Total Bilirubin 0.2 (0.2-1.0) mg/dL AST 22 (15-37) IU/L ALT 71 H (14-63) IU/L Alkaline Phosphatase 114 (46-116) U/L Total Protein 5.6 L (6.4-8.2) g/dL Albumin 2.1 L (3.4-5.0) g/dL Globulin 3.5 (2.6-4.0) g/dL Albumin/Globulin Ratio 0.6 L (0.9-1.6) Med Orders - Current: Current Medications Cyclobenzaprine HCl (Flexeril) 5 mg PO BID [facility] Last Admin: 03/28/18 08:05 Dose: 5 mg Diphenhydramine HCl (Benadryl) 25 mg IVPUSH Q4H PRN PRN Reason: Itching Enoxaparin Sodium (Lovenox) 40 mg SUBCUT Q24H [facility] Last Admin: 03/28/18 11:14 Dose: 40 mg Hydromorphone HCl (Dilaudid) 0.5 mg IVPUSH Q1H PRN PRN Reason: Abdominal Pain Sodium Chloride (Normal Saline) 1,000 mls @ 125 mls/hr IV ASDIRECTED [facility] Last Admin: 03/27/18 08:30 Dose: 125 mls/hr Ketorolac Tromethamine (Toradol) 10 mg PO Q6H [facility] Stop: 04/01/18 08:01 Last Admin: 03/28/18 14:36 Dose: 10 mg Ondansetron HCl (Zofran) 4 mg IVPUSH Q6H PRN PRN Reason: Nausea/Vomiting Last Admin: 03/26/18 20:17 Dose: 4 mg Oxycodone/Acetaminophen (Percocet 325-5 Mg) 2 tab PO Q4H PRN PRN Reason: Abdominal Pain Last Admin: 03/28/18 11:17 Dose: 2 tab Pantoprazole Sodium (Protonix) 40 mg PO DAILY [facility] Last Admin: 03/28/18 08:05 Dose: 40 mg Promethazine HCl (Phenergan) 25 mg IM Q6H PRN PRN Reason: Nausea Scopolamine (Transderm-Scop) 1.5 mg TRDERM Q72H [facility] Last Admin: 03/25/18 18:21 Dose: 1.5 mg Sodium Chloride (Saline Flush) 10 ml FLUSH ASDIRECTED PRN PRN Reason: Keep Vein Open Sodium Chloride (Saline Flush) 2.5 ml FLUSH ASDIRECTED PRN PRN Reason: Keep Vein Open Discontinued Medications Bupivacaine HCl (Marcaine 0.5%) Confirm Administered Dose 30 ml .ROUTE .STK-MED ONE Stop: 03/26/18 13:49 Bupivacaine HCl (Sensorcaine-Mpf 0.5%) Confirm Administered Dose 40 ml .ROUTE .STK-MED ONE Stop: 03/26/18 16:01 Bupivacaine HCl (Marcaine 0.5%) Confirm Administered Dose 120 ml .ROUTE .STK- MED ONE Stop: 03/26/18 16:04 Bupivacaine HCl (Marcaine 0.5%) Confirm Administered Dose 30 ml .ROUTE .STK-MED ONE Stop: 03/26/18 16:56 Cefazolin Sodium (Ancef) Confirm Administered Dose 1 gm .ROUTE .STK-MED ONE Stop: 03/26/18 16:32 Dexamethasone (Dexamethasone) Confirm Administered Dose 20 mg .ROUTE .STK-MED ONE Stop: 03/26/18 13:00 Fentanyl (Sublimaze) Confirm Administered Dose 250 mcg .ROUTE .STK-MED ONE Stop: 03/26/18 12:55 Fentanyl (Sublimaze) 50 mcg IVPUSH Q5M PRN PRN Reason: Pain (severe 7-10) Stop: 03/26/18 18:00 Glycopyrrolate (Robinul) Confirm Administered Dose 0.4 mg .ROUTE .STK-MED ONE Stop: 03/26/18 13:00 Hydromorphone HCl (Dilaudid) 0.5 mg IVPUSH Q1H PRN PRN Reason: Pain (severe 7-10) Hydromorphone HCl (Dilaudid) Confirm Administered Dose 2 mg .ROUTE .STK-MED ONE Stop: 03/26/18 15:28 Hydromorphone HCl (Dilaudid) 2 mg IVPUSH ONETIME ONE Stop: 03/26/18 17:28 Last Admin: 03/26/18 18:59 Dose: Not Given Hydromorphone HCl (Dilaudid) Confirm Administered Dose 2 mg .ROUTE .STK-MED ONE Stop: 03/26/18 17:29 Last Admin: 03/26/18 17:34 Dose: 2 mg Piperacillin Sod/Tazobactam (Sod 3.375 gm/ Sodium Chloride) 50 mls @ 100 mls/ hr IV Q8H [facility] Last Admin: 03/28/18 01:02 Dose: 100 mls/hr Lidocaine HCl (Xylocaine-Mpf 1%) Confirm Administered Dose 5 mls @ as directed .ROUTE .STK-MED ONE Stop: 03/26/18 12:57 Sodium Chloride (Normal Saline) Confirm Administered Dose 20 mls @ as directed .ROUTE .STK-MED ONE Stop: 03/26/18 14:23 Bupivacaine HCl/Epinephrine Bitart (Sensorc Mpf 0.25%-Epi 1:[id number]) Confirm Administered Dose 30 mls @ as directed .ROUTE .STK-MED ONE Stop: 03/26/18 16:03 Bupivacaine HCl/Epinephrine Bitart (Sensorc Mpf 0.25%-Epi 1:[id number]) Confirm Administered Dose 30 mls @ as directed .ROUTE .STK-MED ONE Stop: 03/26/18 16:06 Acetaminophen 1,000 mg/ Premix 100 mls @ 400 mls/hr IV NOW ONE Stop: 03/26/18 17:42 Last Admin: 03/26/18 18:01 Dose: 400 mls/hr Acetaminophen (Ofirmev) Confirm Administered Dose 100 mls @ as directed IV .STK- MED ONE Stop: 03/26/18 17:40 Iopamidol (Isovue Multipack-370 (76%)) 90 ml IVPUSH ONETIME STA Stop: 03/25/18 17:31 Last Admin: 03/25/18 17:30 Dose: 90 ml Ketorolac Tromethamine (Toradol) 30 mg IVPUSH ONETIME ONE Stop: 03/27/18 02:37 Last Admin: 03/27/18 02:48 Dose: 30 mg Midazolam HCl (Versed 1 Mg/Ml) Confirm Administered Dose 2 mg .ROUTE .STK-MED ONE Stop: 03/26/18 12:55 Morphine Sulfate (Morphine Rug Cleaner 30 Mg In 30 Ml) 30 mg IV CONTINUOUS [facility]; Protocol Last Admin: 03/27/18 20:02 Dose: 30 mg Morphine Sulfate (Morphine Rug Cleaner 30 Mg In 30 Ml) Confirm Administered Dose 30 mg .ROUTE .STK-MED ONE Stop: 03/26/18 17:42 Last Admin: 03/26/18 18:59 Dose: Not Given Neostigmine Methylsulfate (Neostigmine) Confirm Administered Dose 5 mg .ROUTE .STK-MED ONE Stop: 03/26/18 13:00 Ondansetron HCl (Zofran) Confirm Administered Dose 4 mg .ROUTE .STK-MED ONE Stop: 03/26/18 13:00 Oxycodone/Acetaminophen (Percocet 325-5 Mg) 2 tab PO Q4H PRN PRN Reason: Pain (moderate 4-6) Last Admin: 03/26/18 12:35 Dose: 1 tab Phenylephrine HCl (Phenylephrine In Ns 100 Mcg/Ml) Confirm Administered Dose 1 mg .ROUTE .STK-MED ONE Stop: 03/26/18 14:49 Propofol (Diprivan 20 Ml) Confirm Administered Dose 200 mg .ROUTE .STK-MED ONE Stop: 03/26/18 12:55 Rocuronium [place] (Zemuron) Confirm Administered Dose 100 mg .ROUTE .STK-MED ONE Stop: 03/26/18 13:00 Ropivacaine (Naropin 0.2%) Confirm Administered Dose 20 ml .ROUTE .STK-MED ONE Stop: 03/26/18 16:08 Succinylcholine Chloride (Quelicin) Confirm Administered Dose 200 mg .ROUTE .STK -MED ONE Stop: 03/26/18 13:00 - Exam Wound/Incisions: Healing Well, No Drainage General: Alert, Oriented Lungs: Normal Respiratory Effort Cardiovascular: Regular Rate GI/Abdominal Exam: Soft, Non-Tender, No Distention, No Mass - Problem List & Annotations (1) Cholelithiasis SNOMED Code(s): 681121323 Code(s): K80.20 - CALCULUS OF GALLBLADDER W/O CHOLECYSTITIS W/O OBSTRUCTION Status: Acute Current Visit: No (2) Biliary colic SNOMED Code(s): 58271507 Code(s): K80.50 - CALCULUS OF BILE DUCT W/O CHOLANGITIS OR CHOLECYST W/O OBST Status: Acute Priority: Medium Current Visit: No - Problem List Review Problem List Initiated/Reviewed/Updated: Yes - My Orders Last 24 Hours: Active Orders 24 hr Category Date Time Status Acetaminophen/oxyCODONE [Percocet 325-5 MG] Med 03/28/18 07:39 Active 2 tab PO Q4H PRN HYDROmorphone [Dilaudid] Med 03/28/18 07:40 Active 0.5 mg IVPUSH Q1H PRN Medication Orders Cyclobenzaprine HCl (Flexeril) 5 mg PO BID [facility] Last Admin: 03/28/18 08:05 Dose: 5 mg Admin: 03/27/18 20:39 Dose: 5 mg Admin: 03/27/18 08:52 Dose: 5 mg Admin: 03/26/18 20:20 Dose: 5 mg Diphenhydramine HCl (Benadryl) 25 mg IVPUSH Q4H PRN PRN Reason: Itching Enoxaparin Sodium (Lovenox) 40 mg SUBCUT Q24H [facility] Last Admin: 03/28/18 11:14 Dose: 40 mg Admin: 03/27/18 11:05 Dose: 40 mg Hydromorphone HCl (Dilaudid) 0.5 mg IVPUSH Q1H PRN PRN Reason: Abdominal Pain Sodium Chloride (Normal Saline) 1,000 mls @ 125 mls/hr IV ASDIRECTED [facility] Last Admin: 03/27/18 08:30 Dose: 125 mls/hr Infusion: 03/27/18 07:54 Dose: 125 mls/hr Admin: 03/26/18 23:54 Dose: 125 mls/hr Infusion: 03/26/18 19:30 Dose: 125 mls/hr Admin: 03/26/18 11:30 Dose: 125 mls/hr Infusion: 03/26/18 08:20 Dose: 125 mls/hr Admin: 03/26/18 00:20 Dose: 125 mls/hr Infusion: 03/26/18 00:20 Dose: 125 mls/hr Admin: 03/25/18 17:46 Dose: 125 mls/hr Ketorolac Tromethamine (Toradol) 10 mg PO Q6H [facility] Stop: 04/01/18 08:01 Last Admin: 03/28/18 14:36 Dose: 10 mg Admin: 03/28/18 07:44 Dose: 10 mg Admin: 03/28/18 01:00 Dose: 10 mg Admin: 03/27/18 19:45 Dose: 10 mg Admin: 03/27/18 14:26 Dose: 10 mg Admin: 03/27/18 08:50 Dose: 10 mg Ondansetron HCl (Zofran) 4 mg IVPUSH Q6H PRN PRN Reason: Nausea/Vomiting Last Admin: 03/26/18 20:17 Dose: 4 mg Admin: 03/26/18 06:06 Dose: 4 mg Oxycodone/Acetaminophen (Percocet 325-5 Mg) 2 tab PO Q4H PRN PRN Reason: Abdominal Pain Last Admin: 03/28/18 11:17 Dose: 2 tab Pantoprazole Sodium (Protonix) 40 mg PO DAILY [facility] Last Admin: 03/28/18 08:05 Dose: 40 mg Admin: 03/27/18 08:50 Dose: 40 mg Admin: 03/26/18 08:35 Dose: 40 mg Admin: 03/25/18 17:47 Dose: 40 mg Promethazine HCl (Phenergan) 25 mg IM Q6H PRN PRN Reason: Nausea Scopolamine (Transderm-Scop) 1.5 mg TRDERM Q72H [facility] Last Admin: 03/25/18 18:21 Dose: 1.5 mg Sodium Chloride (Saline Flush) 10 ml FLUSH ASDIRECTED PRN PRN Reason: Keep Vein Open Sodium Chloride (Saline Flush) 2.5 ml FLUSH ASDIRECTED PRN PRN Reason: Keep Vein Open - Plan Plan (Free Text/Narrative):: Switched from morphine CLIENT SERVICES ADMINISTRATOR to po percocet and prn IV dilaudid. Has been doing well with scheduled toradol and flexeril. Removed drain and dressings today. Patient still has some marcaine left in OnQ pump. WIll likely remove tomorrow. Tolerating diet and ambulating. Likely home in the am. Ok to shower. Keep dressing clean and dry over drain site.
[2018-03-28] MEDS: Scopolamine 1.5 MG Transdermal Patch TRDERM SCH (16:31)
[2018-03-29] MEDS: Ketorolac 10 MG Tab PO SCH ×2 (01:08→08:25)
[2018-03-29] MEDS: Pantoprazole 40 MG Tab.CR PO SCH (08:24)
[2018-03-29] MEDS: Cyclobenzaprine 5 MG Tab PO SCH (08:24)
--- NOTE | 2018-03-29 11:42 | PCM.DCSUM1 ---
Discharge Summary - Hospital Course Free Text/Narrative:: Patient is a 27-year-old female who presented to my clinic Sunday afternoon with tentative 10 right upper quadrant pain. She is admitted to the hospital for pain control and workup of acute cholecystitis. She had an elevated white blood cell count and a CT scan that showed a grossly distended and thickened gallbladder containing a large stone. This was read as acute cholecystitis. She was given IV antibiotics and IV fluids overnight and the next day she underwent a cholecystectomy. Due to severe inflammation, the case was converted from laparoscopic to open. She did well in the postoperative period. She was given a morphine DIRECTOR OF PULMONARY UNIT which she used to control her pain. She was given scheduled Flexeril. That evening she had breakthrough pain was given Toradol with good relief. The next morning Toradol was scheduled. Her drain output slowly decreased and became serous appearing. It was removed on postop day 2. Her diet was advanced without difficulty. Follow-up labs showed normal LFTs and a decrease in her white blood cell count. She was taken off IV antibiotics. She is ambulating without difficulty and passing gas. Her vital signs of unstable and her pain is under good control with oral medications alone. She was cleared for discharge. - Discharge Data Discharge Date: 03/29/18 Discharge Disposition: Home, Self-Care 01 Condition: Good - Discharge Diagnosis/Problem(s) (1) Cholelithiasis SNOMED Code(s): 059867473 ICD Code: K80.20 - CALCULUS OF GALLBLADDER W/O CHOLECYSTITIS W/O OBSTRUCTION Status: Acute (2) Biliary colic SNOMED Code(s): 73862288 ICD Code: K80.50 - CALCULUS OF BILE DUCT W/O CHOLANGITIS OR CHOLECYST W/O OBST Status: Acute Priority: Medium - Patient Summary/Data Operative Procedure(s) Performed: Laparoscopic converted to open cholecystectomy - Patient Instructions Diet: Regular Diet as Tolerated Activity: No Lifting Over 20 Pounds, Rest and Relax Today Driving: Do Not Drive Showering/Bathing: May Shower, No Tub Bathing/Swimming Notify Provider of: Fever, Increased Pain, Swelling and Redness, Drainage, Nausea and/or Vomiting - Discharge Plan *PRESCRIPTION DRUG MONITORING PROGRAM REVIEWED*: Yes *COPY OF PRESCRIPTION DRUG MONITORING REPORT IN PATIENT TACOS: Yes Prescriptions/Med Rec: Cyclobenzaprine [Flexeril] 5 mg PO BID PRN #20 tablet PRN Reason: Muscle Spasm Home Medications: Home Meds traMADol HCl [Tramadol HCl] 1 tab PO ASDIRECTED PRN 03/07/18 [History] Hyoscyamine Sulfate [Levsin] 0.125 mg PO TID PRN #20 tablet 03/24/18 [Rx] Ondansetron HCl [Zofran] 4 mg PO Q4HR #12 tablet 03/24/18 [Rx] traMADol HCl [Tramadol HCl] 50 mg PO Q6H PRN #16 tablet 03/24/18 [Rx] Cyclobenzaprine [Flexeril] 5 mg PO BID PRN #20 tablet 03/29/18 [Rx] Patient Handouts: Cyclobenzaprine tablets, Open Cholecystectomy, Care After, Acetaminophen; Oxycodone tablets, Ketorolac tablets Referrals: Radha Vera MD [Physician] - 04/05/18 2:45 pm - Discharge Summary/Plan Comment DC Time >30 min.: No - General Info Date of Service: 03/29/18 Functional Status: Reports: Pain Controlled, Tolerating Diet, Ambulating, Urinating - Review of Systems General: Reports: No Symptoms Pulmonary: Reports: No Symptoms Cardiovascular: Reports: No Symptoms Gastrointestinal: Reports: No Symptoms Genitourinary: Reports: No Symptoms Skin: Reports: No Symptoms - Patient Data Vitals - Most Recent: Last Vital Signs Temp 36.9 C 03/29/18 07:45 Pulse 59 L 03/29/18 07:45 Resp 18 03/29/18 07:45 BP 118/67 03/29/18 07:45 Pulse Ox 95 03/29/18 07:45 Weight - Most Recent: 76.827 kg I&O - Last 24 hours: Intake & Output 03/28/18 03/29/18 03/29/18 22:59 06:59 14:59 Intake Total 1600 750 300 Output Total 3320 1500 200 Balance -1720 -750 100 Med Orders - Current: Current Medications Discontinued Medications Bupivacaine HCl (Marcaine 0.5%) Confirm Administered Dose 30 ml .ROUTE .STK-MED ONE Stop: 03/26/18 13:49 Bupivacaine HCl (Sensorcaine-Mpf 0.5%) Confirm Administered Dose 40 ml .ROUTE .STK-MED ONE Stop: 03/26/18 16:01 Bupivacaine HCl (Marcaine 0.5%) Confirm Administered Dose 120 ml .ROUTE .STK- MED ONE Stop: 03/26/18 16:04 Bupivacaine HCl (Marcaine 0.5%) Confirm Administered Dose 30 ml .ROUTE .STK-MED ONE Stop: 03/26/18 16:56 Cefazolin Sodium (Ancef) Confirm Administered Dose 1 gm .ROUTE .STK-MED ONE Stop: 03/26/18 16:32 Cyclobenzaprine HCl (Flexeril) 5 mg PO BID [facility] Last Admin: 03/29/18 08:24 Dose: 5 mg Dexamethasone (Dexamethasone) Confirm Administered Dose 20 mg .ROUTE .STK-MED ONE Stop: 03/26/18 13:00 Diphenhydramine HCl (Benadryl) 25 mg IVPUSH Q4H PRN PRN Reason: Itching Enoxaparin Sodium (Lovenox) 40 mg SUBCUT Q24H [facility] Last Admin: 03/28/18 11:14 Dose: 40 mg Fentanyl (Sublimaze) Confirm Administered Dose 250 mcg .ROUTE .STK-MED ONE Stop: 03/26/18 12:55 Fentanyl (Sublimaze) 50 mcg IVPUSH Q5M PRN PRN Reason: Pain (severe 7-10) Stop: 03/26/18 18:00 Glycopyrrolate (Robinul) Confirm Administered Dose 0.4 mg .ROUTE .STK-MED ONE Stop: 03/26/18 13:00 Hydromorphone HCl (Dilaudid) 0.5 mg IVPUSH Q1H PRN PRN Reason: Pain (severe 7-10) Hydromorphone HCl (Dilaudid) Confirm Administered Dose 2 mg .ROUTE .ST-MED ONE Stop: 03/26/18 15:28 Hydromorphone HCl (Dilaudid) 2 mg IVPUSH ONETIME ONE Stop: 03/26/18 17:28 Last Admin: 03/26/18 18:59 Dose: Not Given Hydromorphone HCl (Dilaudid) Confirm Administered Dose 2 mg .ROUTE .STK-MED ONE Stop: 03/26/18 17:29 Last Admin: 03/26/18 17:34 Dose: 2 mg Hydromorphone HCl (Dilaudid) 0.5 mg IVPUSH Q1H PRN PRN Reason: Abdominal Pain Piperacillin Sod/Tazobactam (Sod 3.375 gm/ Sodium Chloride) 50 mls @ 100 mls/ hr IV Q8H [facility] Last Admin: 03/28/18 01:02 Dose: 100 mls/hr Sodium Chloride (Normal Saline) 1,000 mls @ 125 mls/hr IV ASDIRECTED [facility] Last Admin: 03/27/18 08:30 Dose: 125 mls/hr Lidocaine HCl (Xylocaine-Mpf 1%) Confirm Administered Dose 5 mls @ as directed .ROUTE .STK-MED ONE Stop: 03/26/18 12:57 Sodium Chloride (Normal Saline) Confirm Administered Dose 20 mls @ as directed .ROUTE .STK-MED ONE Stop: 03/26/18 14:23 Bupivacaine HCl/Epinephrine Bitart (Sensorc Mpf 0.25%-Epi 1:[id number]) Confirm Administered Dose 30 mls @ as directed .ROUTE .STK-MED ONE Stop: 03/26/18 16:03 Bupivacaine HCl/Epinephrine Bitart (Sensorc Mpf 0.25%-Epi 1:948628) Confirm Administered Dose 30 mls @ as directed .ROUTE .STK-MED ONE Stop: 03/26/18 16:06 Acetaminophen 1,000 mg/ Premix 100 mls @ 400 mls/hr IV NOW ONE Stop: 03/26/18 17:42 Last Admin: 03/26/18 18:01 Dose: 400 mls/hr Acetaminophen (Ofirmev) Confirm Administered Dose 100 mls @ as directed IV .STK- MED ONE Stop: 03/26/18 17:40 Iopamidol (Isovue Multipack-370 (76%)) 90 ml IVPUSH ONETIME STA Stop: 03/25/18 17:31 Last Admin: 03/25/18 17:30 Dose: 90 ml Ketorolac Tromethamine (Toradol) 30 mg IVPUSH ONETIME ONE Stop: 03/27/18 02:37 Last Admin: 03/27/18 02:48 Dose: 30 mg Ketorolac Tromethamine (Toradol) 10 mg PO Q6H [facility] Stop: 04/01/18 08:01 Last Admin: 03/29/18 08:25 Dose: 10 mg Midazolam HCl (Versed 1 Mg/Ml) Confirm Administered Dose 2 mg .ROUTE .STK-MED ONE Stop: 03/26/18 12:55 Morphine Sulfate (Morphine Roving Sizer 30 Mg In 30 Ml) 30 mg IV CONTINUOUS [facility]; Protocol Last Admin: 03/27/18 20:02 Dose: 30 mg Morphine Sulfate (Morphine Roving Sizer 30 Mg In 30 Ml) Confirm Administered Dose 30 mg .ROUTE .STK-MED ONE Stop: 03/26/18 17:42 Last Admin: 03/26/18 18:59 Dose: Not Given Neostigmine Methylsulfate (Neostigmine) Confirm Administered Dose 5 mg .ROUTE .STK-MED ONE Stop: 03/26/18 13:00 Ondansetron HCl (Zofran) 4 mg IVPUSH Q6H PRN PRN Reason: Nausea/Vomiting Last Admin: 03/26/18 20:17 Dose: 4 mg Ondansetron HCl (Zofran) Confirm Administered Dose 4 mg .ROUTE .STK-MED ONE Stop: 03/26/18 13:00 Oxycodone/Acetaminophen (Percocet 325-5 Mg) 2 tab PO Q4H PRN PRN Reason: Pain (moderate 4-6) Last Admin: 03/26/18 12:35 Dose: 1 tab Oxycodone/Acetaminophen (Percocet 325-5 Mg) 2 tab PO Q4H PRN PRN Reason: Abdominal Pain Last Admin: 03/28/18 11:17 Dose: 2 tab Pantoprazole Sodium (Protonix) 40 mg PO DAILY [facility] Last Admin: 03/29/18 08:24 Dose: 40 mg Phenylephrine HCl (Phenylephrine In Ns 100 Mcg/Ml) Confirm Administered Dose 1 mg .ROUTE .STK-MED ONE Stop: 03/26/18 14:49 Promethazine HCl (Phenergan) 25 mg IM Q6H PRN PRN Reason: Nausea Propofol (Diprivan 20 Ml) Confirm Administered Dose 200 mg .ROUTE .STK-MED ONE Stop: 03/26/18 12:55 Rocuronium [place] (Zemuron) Confirm Administered Dose 100 mg .ROUTE .STK-MED ONE Stop: 03/26/18 13:00 Ropivacaine (Naropin 0.2%) Confirm Administered Dose 20 ml .ROUTE .STK-MED ONE Stop: 03/26/18 16:08 Scopolamine (Transderm-Scop) 1.5 mg TRDERM Q72H [facility] Last Admin: 03/28/18 16:31 Dose: 1.5 mg Sodium Chloride (Saline Flush) 10 ml FLUSH ASDIRECTED PRN PRN Reason: Keep Vein Open Sodium Chloride (Saline Flush) 2.5 ml FLUSH ASDIRECTED PRN PRN Reason: Keep Vein Open Succinylcholine Chloride (Quelicin) Confirm Administered Dose 200 mg .ROUTE .[employer] -MED ONE Stop: 03/26/18 13:00 - Exam General: Reports: Alert, Oriented Lungs: Reports: Normal Respiratory Effort Cardiovascular: Reports: Regular Rate GI/Abdominal Exam: Soft, Non-Tender, No Distention, No Mass Extremities: Normal Inspection Skin: Reports: Warm, Dry, Intact Wound/Incisions: Reports: Healing Well
== END 2018-03-29 10:20 | disposition home or self-care (01) | DRG 416 ==
LOC: MW.MS 15:08 → MERGE 16:34 → OBSVTOIN 03-26 15:08 → MW.MS 03-26 15:09
PROVIDERS: ADMIT Surgery; ATTEND Surgery
PROC: 0FT40ZZ Resection of Gallbladder, Open Approach (ICD-10-PCS; principal; 2018-03-26)
PROC: 0FJ44ZZ Inspection of Gallbladder, Percutaneous Endoscopic Approach (ICD-10-PCS; 2018-03-26)
DX: K80.00 Calculus of gallbladder with acute cholecystitis without obstruction (principal); E28.2 Polycystic ovarian syndrome; Z91.040 Latex allergy status; Z79.899 Other long term (current) drug therapy; Z53.31 Laparoscopic surgical procedure converted to open procedure; F17.210 Nicotine dependence, cigarettes, uncomplicated
CPT/HCPCS: 00790; 36415; 74177; 74177-26; 80053; 83690; 83735; 84100; 85025; 85027; 88304; 96361; 96365; 96375; A9270-GY; G0378; G0379; J0131; J0330; J0690; J1100; J1170; J1650; J1885; J2250; J2274; J2370; J2405; J2543; J2704; J2795; J3010; J3490; J7040; J7050; Q9967

== ENCOUNTER 2020-07-03 17:09 | Emergency (ER) | payer BC ==
[2020-07-03] MEDS ORDERED: Acetaminophen/HYDROcodone 325-5 MG Tab PO ONE (17:36)
[2020-07-03] MEDS ORDERED: Ketorolac 60 MG/2 ML SDV IM ONE (17:36)
--- NOTE | 2020-07-03 18:03 | EDM.PDOC ---
ED HPI GENERAL MEDICAL PROBLEM - General Chief Complaint: Back Pain or Injury Stated Complaint: BACK PAIN Time Seen by Provider: 07/03/20 17:10 Source of Information: Reports: Patient History Limitations: Reports: No Limitations - History of Present Illness INITIAL COMMENTS - FREE TEXT/NARRATIVE: HISTORY AND PHYSICAL: History of present illness: Patient is a 29-year-old female who presents emergency room today with concern of exacerbation of low back pain. Patient states that she has chronic low back pain since she was 24 years old and had to have surgery on her lumbar spine have a discectomy of her L5. Patient states that she had this done at [place] in [place] after she had a bulging disc pressing on the nerve causing low back pain. Patient states ever since the surgery, she has had chronic back pain and deals with this daily but states over the past several days she has had exacerbation of her low back pain and feels like she has another bulging disc p ressing on a nerve. Patient states in general in the past 1 month, she has had more frequent exacerbations of her low back pain and had an x-ray done with her primary care provider in the clinic. Patient states that she was told she may need to have back surgery again but states that she has been working and doing exercises to prevent this. Patient states she has not taken anything today for her symptoms. Patient states that she is having some right-sided sciatica issues that started her back and radiate down her leg when she moves. Patient states that she has been able to walk and denies any deficits. Patient states she has a history of tubal ligation. Patient denies any trauma or injury. Patient denies any loss or retention of bowel bladder function or saddle anesthesia. Patient denies fever, chills, chest pain, shortness of breath, or cough. Denies headache, neck stiff ness, change in vision, syncope, or near syncope. Denies nausea, vomiting, abdominal pain, diarrhea, constipation, or dysuria. Has not noted any blood in urine or stool. Patient has been eating and drinking appropriately. Review of systems: As per history of present illness and below otherwise all systems reviewed and negative. Past medical history: As per history of present illness and as reviewed below otherwise noncontributory. Surgical history: As per history of present illness and as reviewed below otherwise noncontributory. Social history: See social history for further information Family history: As per history of present illness and as reviewed below otherwise noncontributory. Physical exam: General: Patient is alert, oriented, and in no acute distress. Patient sitting comfortably on exam table. Vitals stable and reviewed by me. HEENT: Atraumatic, normocephalic, pupils equal and reactive bilaterally, negative for conjunctival pallor or scleral icterus, mucous membranes moist, TMs normal bilaterally, throat clear, neck supple, nontender, trachea midline. No drooling or trismus noted. No meningeal signs. No hot potato voice noted. Lungs: Clear to auscultation, breath sounds equal bilaterally, chest nontender. Heart: S1S2, regular rate and rhythm without overt murmur Abdomen: Soft, nondistended, nontender. Negative for masses or hepatosplenomegaly. Negative for costovertebral tenderness. Pelvis: Stable nontender. Genitourinary: Deferred. Rectal: Deferred. Skin: Intact, warm, dry. No lesions or rashes noted. Extremities/musculoskeletal: No obvious deformity of the complete spine. No step-offs, crepitus, or point tenderness to palpation of the complete spine. Scarring noted to the lumbar spine consistent with surgical history. Patient does have full range of motion of the complete spine but does have significant pain with range of motion of the lumbar spine. Patient was able to ambulate into the ED today without difficulty. Patellar reflexes intact bilaterally. Heel/toe gait intact. Straight leg raise intact bilaterally. Otherwise, atraumatic, negative for cords or calf pain. Neurovascular unremarkable. Neuro: Awake, alert, oriented. Cranial nerves II through XII unremarkable. Cerebellum unremarkable. Motor and sensory unremarkable throughout. Exam nonfocal. Notes: Upon arrival to the ED, patient is vitally stable, nontoxic, and in no acute distress. She does have significant pain with range of motion of her lumbar spine had an x-ray done with her primary care provider of her lumbar spine on 06/03/2020 which showed moderate narrowing of the L4 and L5 interspaces. Mild narrowing L3 interspace. Mild hypertrophic changes from L3-L5. No acute fracture or subluxation of the lumbar spine. Surgical clips in the mid abdomen noted. Mild thoracolumbar scoliosis. Remainder negative. As patients symptoms have worsened since this imaging, will obtain lumbar CT at this time. Lumbar CT shows no acute abnormality of the lumbar spine. Degeneration changes at L4-5 and L5-S1 with mild foraminal stenosis bilaterally. Upon reevaluation of patient, she appears more comfortable following therapeutics given today in the emergency room. Signs and symptoms that were prompt return to the ED thoroughly discussed with patient. Discussed importance for follow-up with a primary care provider. Signs and symptoms that were prompt return the ED thoroughly discussed with patient. Discussed importance for follow-up with a primary care provider. Voices understanding and is agreeable to plan of care. Denies any further questions or concerns at this time. Diagnostics: Lumbar CT w/o cont, [employer]: Toradol, [place] tab 5/325 Prescription: Flexeril, Diclofenac Impression: Acute on chronic low back pain Plan: 1. The medication you received today does cause drowsiness, so do not drive for the remaining day. 2. When resting please lay on a flat firm surface. Limit your mobility to prevent muscle stiffness. Get up to ambulate/move around/gentle stretching multiple times throughout the day. May alternate heat and ice to painful areas. 3. Tylenol as needed for back pain. Otherwise, take the prescribed Flexeril and diclofenac as directed. Diclofenac as an anti-inflammatory medication so do not take any additional NSAIDs with this medication, such as naproxen, ibuprofen, or Aleve. Flexeril, this medication may cause drowsiness, so do not take it while driving or needing to be functioning outside of the home. 4. Follow-up with your primary care provider as discussed. Return to the ED as needed and as discussed. Definitive disposition and diagnosis as appropriate pending reevaluation and review of above. back pain Pain Score (Numeric/FACES): 8 - Related Data Allergies Allergy/AdvReac Type Severity Reaction Status Date / Time latex Allergy Swelling Verified 03/21/18 03:28 sardines Allergy Hives Uncoded 03/21/18 03:28 wasp stings Allergy Swelling Uncoded 03/21/18 03:28 Home Meds: Home Meds Cyclobenzaprine [Flexeril] 10 mg PO TID PRN #9 tab 07/03/20 [Rx] Diclofenac Sodium [Voltaren] 75 mg PO BIDMEALS PRN #15 tab.cr 07/03/20 [Rx] Past Medical History - Past Health History Medical/Surgical History: Denies Medical/Surgical History Gastrointestinal History: Reports: Other (See Below) Other Gastrointestinal History: gall bladder issues ANY [employer] History: Reports: Polycystic Ovaries, Spontaneous Neurological History: Reports: None Psychiatric History: Reports: None Endocrine/Metabolic History: Reports: None Hematologic History: Reports: Other (See Below) Other Hematologic History: States when she was little they thought she had a low blood count, bruised easily, went away on its own. Oncologic (Cancer) History: Reports: None Dermatologic History: Reports: None - Infectious Disease History Infectious Disease History: Reports: None - Past Surgical History GI Surgical History: Reports: Cholecystectomy Female Surgical History: Reports: Breast Implant, Oophorectomy, Tubal Ligation Neurological Surgical History: Reports: Discectomy Other Neurological Surgeries/Procedures: L5 on R side Musculoskeletal Surgical History: Reports: Other (See Below) Other Musculoskeletal Surgeries/Procedures:: L5 discectomy, 6 screws and a plate in ankle Social & Family History - Family History Family Medical History: No Pertinent Family History - Tobacco Use Tobacco Use Status *Q: Current Every Day Tobacco User Years of Tobacco use: 10 Packs/Tins Daily: 0.5 - Caffeine Use Caffeine Use: Reports: Coffee, Energy Drinks, Soda - Recreational Drug Use Recreational Drug Use: No ED ROS GENERAL - Review of Systems Review Of Systems: Comprehensive ROS is negative, except as noted in HPI. ED EXAM, GENERAL - Physical Exam Exam: See Below (see dictation) Course - Vital Signs Last Recorded V/S: Last Vital Signs Temp 98.4 F 07/03/20 17:27 Pulse 105 H 07/03/20 17:27 Resp 18 07/03/20 17:27 BP 122/99 H 07/03/20 17:27 Pulse Ox 98 07/03/20 17:27 - Orders/Labs/Meds Orders: Active Orders 24 hr Category Date Time Status UA RFX ANJUM AND CULT IF INDIC [URIN] Stat Lab 07/03/20 17:11 Ordered Meds: Medications Discontinued Medications Generic Name Dose Route Start Last Admin Trade Name Freq PRN Reason Stop Dose Admin Hydrocodone Bitart/Acetaminophen 1 tab 07/03/20 17:36 07/03/20 17:52 Acetaminophen/Hydrocodone 325-5 Mg Tab PO 07/03/20 17:37 1 tab ONETIME ONE Administration Ketorolac Tromethamine 60 mg 07/03/20 17:36 07/03/20 17:51 Ketorolac 60 Mg/2 Ml Sdv IM 07/03/20 17:37 60 mg ONETIME ONE Administration Departure - Departure Time of Disposition: 19:00 Disposition: Home, Self-Care 01 Clinical Impression: Acute exacerbation of chronic low back pain - Discharge Information Prescriptions: Cyclobenzaprine [Flexeril] 10 mg PO TID PRN #9 tab PRN Reason: Spasms Diclofenac Sodium [Voltaren] 75 mg PO BIDMEALS PRN #15 tab.cr PRN Reason: Pain Instructions: Chronic Back Pain, [id number] Referrals: PCP,None [Primary Care Provider] - Forms: ED Department Discharge Additional Instructions: The following information is given to patients seen in the emergency department who are being discharged to home. This information is to outline your options for follow-up care. We provide all patients seen in our emergency department wi th a follow-up referral. The need for follow-up, as well as the timing and circumstances, are variable depending upon the specifics of your emergency department visit. If you don't have a primary care physician on staff, we will provide you with a referral. We always advise you to contact your personal physician following an emergency department visit to inform them of the circumstance of the visit and for follow-up with them and/or the need for any referrals to a consulting specialist. The emergency department will also refer you to a specialist when appropriate. This referral assures that you have the opportunity for follow-up care with a specialist. All of these measure are taken in an effort to provide you with optimal care, which includes your follow-up. Under all circumstances we always encourage you to contact your private physician who remains a resource for coordinating your care. When calling for follow-up care, please make the office aware that this follow-up is from your recent emergency room visit. If for any reason you are refused follow-up, please contact the [facility] Emergency Department at and asked to speak to the emergency department charge nurse. [facility] [address] [place] [id number] [address] 1. The medication you received today does cause drowsiness, so do not drive for the remaining day. 2. When resting please lay on a flat firm surface. Limit your mobility to prevent muscle stiffness. Get up to ambulate/move around/gentle stretching multiple times throughout the day. May alternate heat and ice to painful areas. 3. Tylenol as needed for back pain. Otherwise, take the prescribed Flexeril and diclofenac as directed. Diclofenac as an anti-inflammatory medication so do not take any additional NSAIDs with this medication, such as naproxen, ibuprofen, or Aleve. Flexeril, this medication may cause drowsiness, so do not take it while driving or needing to be functioning outside of the home. 4. Follow-up with your primary care provider as discussed. Return to the ED as needed and as discussed. Sepsis Event Note (ED) - Evaluation Sepsis Screening Result: No Definite Risk - Focused Exam Vital Signs: Vital Signs Temp Pulse Resp BP Pulse Ox 07/03/20 17:27 98.4 F 105 H 18 122/99 H 98 - My Orders Last 24 Hours: My Active Orders 07/03/20 17:11 UA RFX ANJUM AND CULT IF INDIC [URIN] Stat - Assessment/Plan Last 24 Hours: My Active Orders 07/03/20 17:11 UA RFX ANJUM AND CULT IF INDIC [URIN] Stat
--- NOTE | 2020-07-03 18:53 | CT ---
HISTORY: Intermittent low back pain. TECHNIQUE: CT lumbar spine without contrast. COMPARISON: Lumbar spine radiographs 05/06/2020. CT abdomen and pelvis 03/25/2018. FINDINGS: Five lumbar type vertebral bodies. No fracture. No subluxation. Moderate disc space narrowing at L5-S1 with vacuum phenomenon. Mild disc space narrowing at L4-5. Lower lumbar facet degenerative changes. No lytic or blastic bone lesions. No spinal canal stenosis. Mild foraminal stenosis bilaterally at L4-5 and L5-S1. Sacroiliac joints are maintained. Cholecystectomy. Metallic clips in the bilateral adnexa. IMPRESSION: 1. No acute abnormality of the lumbar spine. 2. Degenerative changes at L4-5 and L5-S1 with mild foraminal stenosis bilaterally. Please note that all CT scans at this facility use dose modulation, iterative reconstruction, and/or weight-based dosing when appropriate to reduce radiation dose to as low as reasonably achievable. Dictated by Rodríguez Lockwood MD @ 07/03/2020 6:52:[address] Rodríguez Lockwood @ Jul 03 2020 6:52PM
== END 2020-07-03 19:08 | disposition home or self-care (01) ==
LOC: MW.ED 17:09
DX: G89.29 Other chronic pain (principal); M54.5 Low back pain; Z72.0 Tobacco use; Z91.040 Latex allergy status; Z91.030 Bee allergy status; Z91.013 Allergy to seafood
CPT/HCPCS: 72131; 96372; 99283; A9270; J1885